=== PATIENT | female | born 1990 | race African-American/Black ===

== ENCOUNTER 2017-02-24 10:18 | Emergency (ER) | payer BC ==
[2017-02-24 11:11] LABS: Bilirubin Small (Negative); Blood, Urine Negative (Negative); Glucose, Urine (Dipstick) 500 mg/dL (Negative); Ketone, Urine > or equal to 80 mg/dL (Negative); Nitrite Negative (Negative); Protein, Urine (Dipstick) 30 mg/dL (Neg-Trace); Urobilinogen 0.2 mg/dL (0.2-1.0)
[2017-02-24 11:20] LABS: ALT (SGPT) 25 U/L (8-55); AST (SGOT) 21 U/L (5-34); Alkaline Phosphatase 65 U/L (40-150); Anion Gap 18 mmol/L (10-20); BUN (Urea Nitrogen) 11 mg/dL (7.0-18.7); Bilirubin, Total 0.6 mg/dL (0.2-1.2); Calc. Creatinine Clearance 0 mL/min (70-130); Calcium 8.9 mg/dL (7.8-10.44); Carbon Dioxide 20 mmol/L (22-29); Chloride 101 mmol/L (98-107); Estimated GFR-MDRD Greater than 90; Globulin 3.9 g/dL (2.4-3.5); Protein, Total 7.5 g/dL (6.0-8.3)
[2017-02-24] MEDS ORDERED: Fentanyl 100 MCG/2 ML VIAL ONE (11:22)
[2017-02-24] MEDS ORDERED: Ondansetron HCl/PF 4 MG/2 ML Vial ONE (11:22)
[2017-02-24 11:23] LABS: Bacteria/HPF 1+ HPF (None Seen); RBC/HPF 0-3 HPF (0-3)
[2017-02-24 11:29] LABS: Band 3 % (5-11); Mean Platelet Volume 6.8 fL (7.4-10.4); Neutrophil 87 % (42-75); Reactive Lymphocytes 2 % (0-10); Red Blood Cell (RBC) Count 4.94 mill/uL (4.20-5.40); White Blood Cell (WBC) Count 7.8 thou/uL (4.8-10.8)
[2017-02-24 11:38] LABS: Lipase Less than 4 U/L (8-78)
[2017-02-24 12:13] LABS: pH (venous) 7.34 (7.35-7.45)
[2017-02-24 12:14] LABS: Base Excess -1.5 mEq/L (-2 - +2)
--- NOTE | 2017-02-24 13:43 | ULT ---
PELVIC ULTRASOUND: TECHNIQUE: Transabdominal, transvaginal, Charles-scale, color-flow, and spectral Doppler. FINDINGS: The uterus measures 6.5 x 3.2 x 3.2 cm. There are two masses in the uterus, measuring 2 x 1.4 x 2.4 cm and 2.9 x 2.8 x 3.4 cm, respectively. These are likely fibroids. The endometrium measures 5 mm in thickness. No endometrial fluid is seen. The right ovary measures 2.8 x 1.3 x 2.8 cm. and the left ovary measures 2.6 x 1.4 x 2.7 cm. Flow is demonstrated to both ova dominique. No adnexal mass or free fluid in the cul-de-sac is identified. IMPRESSION: Uterine fibroids. POS: [facility]
[2017-02-24] MEDS ORDERED: Ketorolac Tromethamine 30 MG/ML VIAL ONE (13:57)
== END 2017-02-24 15:00 | disposition home or self-care (01) ==
LOC: SCSER 10:18
DX: D25.9 Leiomyoma of uterus, unspecified (principal); E10.65 Type 1 diabetes mellitus with hyperglycemia; J45.909 Unspecified asthma, uncomplicated; F41.9 Anxiety disorder, unspecified; F32.9 Major depressive disorder, single episode, unspecified; Z79.4 Long term (current) use of insulin
CPT/HCPCS: 36416; 76856; 80053; 81003; 81015; 81025; 82805; 83690; 85025; 87480; 87491; 87510; 87591; 87660; 96361; 96374; 96375; J1885; J2405; J3010

== ENCOUNTER 2017-04-27 15:34 | Emergency (ER) | payer BC, SELFPAY ==
[2017-04-27 15:59] LABS: Bilirubin Negative (Negative); Blood, Urine Large (Negative); Glucose, Urine (Dipstick) 500 mg/dL (Negative); Leukocyte Negative (Negative); Nitrite Negative (Negative); Protein, Urine (Dipstick) Negative (Neg-Trace); Urobilinogen 0.2 mg/dL (0.2-1.0); pH, Urine 6.5 (5.0-9.0)
[2017-04-27 16:09] LABS: #Basophils 0.1 thou/uL (0.0-0.2); #Eosinphils 0.2 thou/uL (0.0-0.7); #Lymphocytes 1.6 thou/uL (1.20-3.40); #Monocytes 0.3 thou/uL (0.11-0.59); #Neutrophils 1.9 thou/uL (1.40-6.50); %Basophils 1.9 % (0.0-1.0); %Eosinophils 5.4 % (0.0-10.0); %Lymphocytes 39.3 % (21.0-51.0); %Monocytes 7.5 % (0.0-10.0); %Neutrophils 45.9 % (42.0-75.0); Mean Corpuscular HGB CONC 34.7 g/dL (32.0-36.0); Mean Corpuscular Hemoglobin 30.5 pg (27.0-31.0); Mean Corpuscular Volume 87.9 fl (81.0-99.0); Mean Platelet Volume 7.4 fL (7.4-10.4); Platelet Count 291 thou/uL (130-400); Red Blood Cell (RBC) Count 4.61 mill/uL (4.20-5.40); White Blood Cell (WBC) Count 4.1 thou/uL (4.8-10.8)
[2017-04-27 16:12] LABS: Clarity Hazy (Clear); Specific Gravity, Urine 1.008 (1.005-1.030)
[2017-04-27 16:13] LABS: Bacteria/HPF Rare-Few HPF (None Seen); WBC/HPF None Seen HPF (0-3)
[2017-04-27 16:14] LABS: ALT (SGPT) 26 U/L (8-55); AST (SGOT) 18 U/L (5-34); Albumin 3.5 g/dL (3.5-5.0); Alkaline Phosphatase 82 U/L (40-150); Anion Gap 14 mmol/L (10-20); BUN (Urea Nitrogen) 11 mg/dL (7.0-18.7); Bilirubin, Total 0.3 mg/dL (0.2-1.2); Calc. Creatinine Clearance 0 mL/min (70-130); Calcium 8.7 mg/dL (7.8-10.44); Carbon Dioxide 22 mmol/L (22-29); Chloride 101 mmol/L (98-107); Estimated GFR-MDRD Greater than 90; Globulin 3.3 g/dL (2.4-3.5); Glucose 530 mg/dL (70-105); Potassium 4.4 mmol/L (3.5-5.1); Protein, Total 6.8 g/dL (6.0-8.3); Sodium 133 mmol/L (136-145)
[2017-04-27 17:06] LABS: Pregnancy Test - Urine (BHCG) Negative (Negative); Specific Gravity 1.008 (1.002-1.036)
[2017-04-27 17:07] LABS: Pregu Control Background? CLEAR/WHITE (CLR/WHITE); Pregu Control Bar Appear? YES (CONTROL BAR)
[2017-04-29 01:15] LABS: Chlamydia by PCR Not Detected (NotDetected); GC by PCR Not Detected (NotDetected)
== END 2017-04-27 17:12 | disposition home or self-care (01) ==
LOC: SCSER 15:34
DX: N94.6 Dysmenorrhea, unspecified (principal); R10.30 Lower abdominal pain, unspecified; D25.9 Leiomyoma of uterus, unspecified; E10.9 Type 1 diabetes mellitus without complications; F32.9 Major depressive disorder, single episode, unspecified; F41.9 Anxiety disorder, unspecified; J45.909 Unspecified asthma, uncomplicated
CPT/HCPCS: 80053; 81003; 81015; 81025; 85025; 87480; 87491; 87510; 87591; 87660; 99284

== ENCOUNTER 2017-11-10 14:11 | Emergency (ER) | payer SELFPAY ==
[2017-11-10 14:42] LABS: Hemoglobin 12.9 g/dL (12.0-16.0); Mean Corpuscular HGB CONC 33.6 g/dL (32.0-36.0); Mean Corpuscular Hemoglobin 30.4 pg (27.0-31.0); Mean Corpuscular Volume 90.5 fL (78.0-98.0); Mean Platelet Volume 7.2 fL (7.4-10.4); Platelet Count 311 thou/uL (130-400); RBC Distribution Width 11.9 % (11.5-14.5); Red Blood Cell (RBC) Count 4.25 mill/uL (4.20-5.40); White Blood Cell (WBC) Count 3.9 thou/uL (4.8-10.8)
--- NOTE | 2017-11-10 14:58 | RAD ---
PORTABLE CHEST ONE VIEW: 11/10/2017 2:35 p.m. HISTORY: Chest pain. FINDINGS: The heart size is normal. The lungs are well expanded without focal areas of consolidation, pneumoth oraces, or pleural effusions. IMPRESSION: No radiographic evidence of acute cardiopulmonary process. POS: [facility]
[2017-11-10 15:02] LABS: ALT (SGPT) 13 U/L (8-55); AST (SGOT) 18 U/L (5-34); Albumin 3.7 g/dL (3.5-5.0); Alkaline Phosphatase 88 U/L (40-150); Anion Gap 11 mmol/L (10-20); BUN (Urea Nitrogen) 9 mg/dL (7.0-18.7); Bilirubin, Total 0.4 mg/dL (0.2-1.2); CK (CPK) 227 U/L (29-168); Calc. Creatinine Clearance 0 mL/min (70-130); Calcium 8.7 mg/dL (7.8-10.44); Carbon Dioxide 26 mmol/L (22-29); Chloride 103 mmol/L (98-107); Estimated GFR-MDRD Greater than 90; Globulin 3.1 g/dL (2.4-3.5); Glucose 182 mg/dL (70-105); Lipase Less than 4 U/L (8-78); Protein, Total 6.8 g/dL (6.0-8.3); Sodium 136 mmol/L (136-145)
[2017-11-10 15:04] LABS: Band 1 % (5-11); Eosinophils 1 % (0-10); Lymphocytes 51 % (21-51); MDiff Complete? YES; Monocytes 6 % (0-10); Neutrophil 41 % (42-75)
[2017-11-10 15:05] LABS: CKMB 1.6 ng/mL (0-6.6); Troponin I Less than 0.010 ng/mL (< 0.028)
[2017-11-10] MEDS ORDERED: Morphine 4 MG/ML VIAL ONE (15:11)
[2017-11-10] MEDS ORDERED: Ondansetron HCl/PF 4 MG/2 ML Vial ONE (15:11)
--- NOTE | 2017-11-10 16:22 | ULT ---
RIGHT UPPER QUADRANT ULTRASOUND: 11/10/17 HISTORY: Chest pain. FINDINGS: The pancreas is mostly obscured by bowel gas and not well evaluated on this exam. There is a tiny non mobile echogenic focus seen within the gallbladder lumen measuring approximately 0.3 cm which was als o present on a prior study on 12/20/09 and is likely related to tiny gallbladder polyp. No gallbladde r calculus is seen, and there is no gallbladder wall thickening or pericholecystic fluid. The common duct measures 0.4 cm in diameter which is within normal limits. The limited visualized portions of the IVC, liver, and right kidney demonstrate a normal sonographic appearance. The right kidney measures 11.2 cm in length. IMPRESSION: Tiny gallbladder polyp which is stable compared to study in 2010. No gallbladder calculi are visualiz ed. The common duct is normal in caliber. POS: [facility]
== END 2017-11-10 16:30 | disposition home or self-care (01) ==
LOC: ERS 14:11
DX: R07.89 Other chest pain (principal); J45.909 Unspecified asthma, uncomplicated; E10.9 Type 1 diabetes mellitus without complications; F41.9 Anxiety disorder, unspecified; F32.9 Major depressive disorder, single episode, unspecified; Z79.899 Other long term (current) drug therapy
CPT/HCPCS: 71045; 76705; 80053; 82010; 82550; 82553; 83690; 84484; 85025; 93005; 94760; 96361; 96374; 96375; J2270; J2405

== ENCOUNTER 2018-01-22 13:24 | Emergency (ER) | payer SELFPAY ==
[2018-01-22 14:50] LABS: #Eosinphils 0.1 thou/uL (0.0-0.7); #Lymphocytes 1.9 thou/uL (1.20-3.40); #Monocytes 0.3 thou/uL (0.11-0.59); #Neutrophils 1.9 thou/uL (1.40-6.50); %Eosinophils 3.2 % (0.0-10.0); %Lymphocytes 44.7 % (21.0-51.0); %Monocytes 6.7 % (0.0-10.0); %Neutrophils 44.3 % (42.0-75.0); Hemoglobin 13.7 g/dL (12.0-16.0); Mean Corpuscular HGB CONC 34.4 g/dL (32.0-36.0); Mean Corpuscular Volume 90.1 fL (78.0-98.0); Mean Platelet Volume 7.4 fL (7.4-10.4); Platelet Count 327 thou/uL (130-400); RBC Distribution Width 12.3 % (11.5-14.5); Red Blood Cell (RBC) Count 4.44 mill/uL (4.20-5.40); White Blood Cell (WBC) Count 4.3 thou/uL (4.8-10.8)
[2018-01-22 15:10] LABS: ALT (SGPT) 15 U/L (8-55); AST (SGOT) 16 U/L (5-34); Alkaline Phosphatase 103 U/L (40-150); Anion Gap 17 mmol/L (10-20); BUN (Urea Nitrogen) 6 mg/dL (7.0-18.7); Bilirubin, Total 0.4 mg/dL (0.2-1.2); Calc. Creatinine Clearance 0 mL/min (70-130); Calcium 9.4 mg/dL (7.8-10.44); Carbon Dioxide 21 mmol/L (22-29); Chloride 101 mmol/L (98-107); Estimated GFR-MDRD Greater than 90; Globulin 3.6 g/dL (2.4-3.5); Glucose 367 mg/dL (70-105); Potassium 4.2 mmol/L (3.5-5.1); Protein, Total 7.6 g/dL (6.0-8.3); Sodium 135 mmol/L (136-145)
[2018-01-22 15:14] LABS: Bilirubin Negative (Negative); Blood, Urine Large (Negative); Clarity CLEAR (Clear); Glucose, Urine (Dipstick) >=1000 mg/dL (Negative); Leukocyte Negative (Negative); Nitrite Negative (Negative); Protein, Urine (Dipstick) Negative (Neg-Trace); Specific Gravity, Urine 1.038 (1.002-1.036); Urobilinogen 0.2 mg/dL (0.2-1.0)
[2018-01-22 15:16] LABS: Bacteria/HPF Rare-Few HPF (None Seen); Hyaline Casts/LPF 0-3 HYALINE CAST LPF (0-3 Hyaline); RBC/HPF 0-3 HPF (0-3); Squamous Epithelial 0-3 HPF (0-3)
[2018-01-22] MEDS ORDERED: HumaLOG 300 UNITS/3 ML VIAL ONE ×2 (15:38→16:05)
[2018-01-22] MEDS ORDERED: Acetaminophen 500 MG TAB ONE (15:38)
[2018-01-22] MEDS ORDERED: Insulin Regular 300 UNITS/3 ML VIAL ONE (16:27)
== END 2018-01-22 17:32 | disposition home or self-care (01) ==
LOC: ERS 13:24
DX: E10.65 Type 1 diabetes mellitus with hyperglycemia (principal); J45.909 Unspecified asthma, uncomplicated; F41.9 Anxiety disorder, unspecified; F32.9 Major depressive disorder, single episode, unspecified; Z79.4 Long term (current) use of insulin
CPT/HCPCS: 36415; 36416; 80053; 81003; 81015; 82010; 85025; 99284; J1815

== ENCOUNTER 2018-02-03 16:37 | Emergency (ER) | payer SELFPAY | END 2018-02-03 18:24 | disposition home or self-care (01) | LOC: ERS 16:37 | DX: F41.9 Anxiety disorder, unspecified (principal); J45.909 Unspecified asthma, uncomplicated; E10.9 Type 1 diabetes mellitus without complications; F32.9 Major depressive disorder, single episode, unspecified | CPT/HCPCS: 93005 ==

== ENCOUNTER 2018-03-16 15:43 | Emergency (ER) | payer OTHER, SELFPAY ==
[2018-03-16 16:28] LABS: #Eosinphils 0.1 thou/uL (0.0-0.7); #Lymphocytes 1.9 thou/uL (1.20-3.40); #Monocytes 0.4 thou/uL (0.11-0.59); #Neutrophils 2.6 thou/uL (1.40-6.50); %Basophils 0.3 % (0.0-1.0); %Eosinophils 2.5 % (0.0-10.0); %Lymphocytes 37.8 % (21.0-51.0); %Monocytes 7.7 % (0.0-10.0); %Neutrophils 51.7 % (42.0-75.0); Mean Corpuscular HGB CONC 33.9 g/dL (32.0-36.0); Mean Corpuscular Hemoglobin 30.3 pg (27.0-31.0); Mean Corpuscular Volume 89.4 fL (78.0-98.0); Mean Platelet Volume 7.5 fL (7.4-10.4); Platelet Count 309 thou/uL (130-400); RBC Distribution Width 12.2 % (11.5-14.5); Red Blood Cell (RBC) Count 4.62 mill/uL (4.20-5.40); White Blood Cell (WBC) Count 4.9 thou/uL (4.8-10.8)
[2018-03-16 16:47] LABS: ALT (SGPT) 17 U/L (8-55); AST (SGOT) 15 U/L (5-34); Albumin 3.6 g/dL (3.5-5.0); Alkaline Phosphatase 124 U/L (40-150); Anion Gap 13 mmol/L (10-20); BUN (Urea Nitrogen) 13 mg/dL (7.0-18.7); Bilirubin, Total 0.4 mg/dL (0.2-1.2); Calc. Creatinine Clearance 0 mL/min (70-130); Calcium 8.9 mg/dL (7.8-10.44); Carbon Dioxide 24 mmol/L (22-29); Chloride 101 mmol/L (98-107); Estimated GFR-MDRD 77; Globulin 3.4 g/dL (2.4-3.5); Glucose 481 mg/dL (70-105); Lipase 6 U/L (8-78); Potassium 4.5 mmol/L (3.5-5.1); Sodium 133 mmol/L (136-145)
[2018-03-16 18:01] LABS: Bilirubin Negative (Negative); Blood, Urine Negative (Negative); Clarity CLEAR (Clear); Glucose, Urine (Dipstick) >=1000 mg/dL (Negative); Leukocyte Negative (Negative); Nitrite Negative (Negative); Protein, Urine (Dipstick) Negative (Neg-Trace); Specific Gravity, Urine 1.033 (1.002-1.036); Urobilinogen 0.2 mg/dL (0.2-1.0)
[2018-03-16 18:05] LABS: Pregnancy Test - Urine (BHCG) Negative (Negative); Pregu Control Background? CLEAR/WHITE (CLR/WHITE); Pregu Control Bar Appear? YES (CONTROL BAR); Specific Gravity 1.033 (1.002-1.036)
--- NOTE | 2018-03-16 19:14 | RAD ---
ABDOMEN ONE VIEW: 03/16/18 HISTORY: Abdominal pain. FINDINGS: Gas and stool throughout the colon and rectum. Small bowel gas pattern is nonspecific. The rounded op acity over the pelvis has the appearance of a full urinary bladder. IMPRESSION: No significant abnormalities are demonstrated. POS: [facility]
== END 2018-03-16 19:36 | disposition home or self-care (01) ==
LOC: ERS 15:43
DX: K59.00 Constipation, unspecified (principal); J45.909 Unspecified asthma, uncomplicated; E10.9 Type 1 diabetes mellitus without complications; E78.5 Hyperlipidemia, unspecified; F41.9 Anxiety disorder, unspecified; F32.9 Major depressive disorder, single episode, unspecified
CPT/HCPCS: 36415; 74018; 80053; 81003; 81025; 83690; 85025

== ENCOUNTER 2018-07-11 12:45 | Emergency (ER) | payer OTHER ==
[2018-07-11 13:11] LABS: #Basophils 0.1 thou/uL (0.0-0.2); #Eosinphils 0.1 thou/uL (0.0-0.7); #Lymphocytes 2.3 thou/uL (1.20-3.40); #Monocytes 0.4 thou/uL (0.11-0.59); %Basophils 1.6 % (0.0-1.0); %Eosinophils 2.7 % (0.0-10.0); %Lymphocytes 47.3 % (21.0-51.0); %Monocytes 7.5 % (0.0-10.0); Mean Corpuscular HGB CONC 33.4 g/dL (32.0-36.0); Mean Corpuscular Hemoglobin 30.3 pg (27.0-31.0); Mean Corpuscular Volume 90.7 fL (78.0-98.0); Mean Platelet Volume 7.3 fL (7.4-10.4); Platelet Count 311 thou/uL (130-400); RBC Distribution Width 11.9 % (11.5-14.5); Red Blood Cell (RBC) Count 4.62 mill/uL (4.20-5.40)
[2018-07-11 13:32] LABS: ALT (SGPT) 20 U/L (8-55); AST (SGOT) 18 U/L (5-34); Albumin 4.3 g/dL (3.5-5.0); Alkaline Phosphatase 101 U/L (40-150); Anion Gap 12 mmol/L (10-20); BUN (Urea Nitrogen) 10 mg/dL (7.0-18.7); Bilirubin, Total 0.4 mg/dL (0.2-1.2); Calc. Creatinine Clearance 0 mL/min (70-130); Calcium 9.8 mg/dL (7.8-10.44); Carbon Dioxide 27 mmol/L (22-29); Chloride 102 mmol/L (98-107); Estimated GFR-MDRD Greater than 90; Globulin 3.3 g/dL (2.4-3.5); Glucose 165 mg/dL (70-105); Potassium 3.9 mmol/L (3.5-5.1); Protein, Total 7.6 g/dL (6.0-8.3); Sodium 137 mmol/L (136-145)
[2018-07-11 13:35] LABS: Bilirubin Negative (Negative); Blood, Urine Negative (Negative); Clarity CLEAR (Clear); Glucose, Urine (Dipstick) >=1000 mg/dL (Negative); Leukocyte Negative (Negative); Nitrite Negative (Negative); Protein, Urine (Dipstick) Trace mg/dL (Neg-Trace); Specific Gravity, Urine 1.044 (1.002-1.036); Urobilinogen 0.2 mg/dL (0.2-1.0)
[2018-07-11 13:39] LABS: Pregnancy Test - Urine (BHCG) Negative (Negative); Pregu Control Background? CLEAR/WHITE (CLR/WHITE); Pregu Control Bar Appear? YES (CONTROL BAR); Specific Gravity 1.044 (1.002-1.036)
[2018-07-11] MEDS ORDERED: Meclizine HCl 25 MG TAB ONE (15:23)
== END 2018-07-11 15:29 | disposition home or self-care (01) ==
LOC: ERS 12:45
DX: R42 Dizziness and giddiness (principal); R53.81 Other malaise; J45.909 Unspecified asthma, uncomplicated; E10.9 Type 1 diabetes mellitus without complications; E78.5 Hyperlipidemia, unspecified; F41.9 Anxiety disorder, unspecified; F32.9 Major depressive disorder, single episode, unspecified; Z79.899 Other long term (current) drug therapy
CPT/HCPCS: 36415; 36416; 80053; 81003; 81025; 85025; 93005; J8499

== ENCOUNTER 2018-07-31 17:32 | Emergency (ER) | payer OTHER ==
[2018-07-31] MEDS ORDERED: Ketorolac Tromethamine 30 MG/ML VIAL ONE (18:35)
== END 2018-07-31 18:56 | disposition home or self-care (01) ==
LOC: ERS 17:32
DX: J32.9 Chronic sinusitis, unspecified (principal); E78.5 Hyperlipidemia, unspecified; J45.909 Unspecified asthma, uncomplicated; E10.9 Type 1 diabetes mellitus without complications; F41.9 Anxiety disorder, unspecified; F32.9 Major depressive disorder, single episode, unspecified; Z79.899 Other long term (current) drug therapy
CPT/HCPCS: 36416; 96372; J1885

== ENCOUNTER 2018-08-01 09:07 | Inpatient (IN) | payer OTHER ==
[2018-08-01] MEDS ORDERED: Ondansetron PF 4 MG/2 ML Vial ONE (09:44)
[2018-08-01] MEDS ORDERED: Promethazine HCl 25 MG/ML VIAL ONE (09:45)
[2018-08-01 09:55] LABS: #Lymphocytes 1.7 thou/uL (1.20-3.40); #Monocytes 0.4 thou/uL (0.11-0.59); #Neutrophils 2.2 thou/uL (1.40-6.50); %Basophils 0.3 % (0.0-1.0); %Eosinophils 0.7 % (0.0-10.0); %Monocytes 9.1 % (0.0-10.0); Hemoglobin 14.5 g/dL (12.0-16.0); Mean Corpuscular Hemoglobin 30.1 pg (27.0-31.0); Mean Corpuscular Volume 91.3 fL (78.0-98.0); Mean Platelet Volume 7.5 fL (7.4-10.4); Platelet Count 295 thou/uL (130-400); RBC Distribution Width 12.1 % (11.5-14.5); White Blood Cell (WBC) Count 4.4 thou/uL (4.8-10.8)
--- NOTE | 2018-08-01 10:08 | RAD ---
EXAM: Single view of the chest HISTORY: Chest and abdominal pain COMPARISON: 11/10/2017 FINDINGS: Single view of the chest shows a normal sized cardiomediastinal silhouette. There is no kim dence of consolidation, mass, or pleural effusion. The bones are unremarkable. IMPRESSION: No evidence of acute cardiopulmonary disease
[2018-08-01 10:19] LABS: Magnesium 2.1 mg/dL (1.6-2.6); Phosphorus 4.4 mg/dL (2.3-4.7)
[2018-08-01 10:20] LABS: ALT (SGPT) 49 U/L (8-55); AST (SGOT) 28 U/L (5-34); Albumin 4.6 g/dL (3.5-5.0); Alkaline Phosphatase 133 U/L (40-150); Anion Gap 28 mmol/L (10-20); BUN (Urea Nitrogen) 17 mg/dL (7.0-18.7); Bilirubin, Total 0.5 mg/dL (0.2-1.2); Calc. Creatinine Clearance 0 mL/min (70-130); Calcium 10.4 mg/dL (7.8-10.44); Carbon Dioxide 10 mmol/L (22-29); Chloride 96 mmol/L (98-107); Estimated GFR-MDRD 54; Globulin 4.2 g/dL (2.4-3.5); Glucose 467 mg/dL (70-105); Potassium 5.5 mmol/L (3.5-5.1); Protein, Total 8.8 g/dL (6.0-8.3); Sodium 128 mmol/L (136-145)
[2018-08-01 10:44] LABS: Bilirubin Negative (Negative); Blood, Urine Trace (Negative); Clarity CLEAR (Clear); Glucose, Urine (Dipstick) >=1000 mg/dL (Negative); Leukocyte Negative (Negative); Nitrite Negative (Negative); Protein, Urine (Dipstick) 30 mg/dL (Neg-Trace); Specific Gravity, Urine 1.031 (1.002-1.036); Urobilinogen 0.2 mg/dL (0.2-1.0)
[2018-08-01 10:47] LABS: Bacteria/HPF None Seen HPF (None Seen); Hyaline Casts/LPF 0-3 HYALINE CAST LPF (0-3 Hyaline); RBC/HPF 0-3 HPF (0-3); Squamous Epithelial 0-3 HPF (0-3); WBC/HPF 0-3 HPF (0-3)
[2018-08-01 11:49] LABS: Base Excess-Venous -16.6 mmol/L (-2.0 to 3.0); Bicarbonate (HCO3v) 11.9 mmol/L (22.0-28.0); Calcium, Ionized 1.22 mmol/L (See Comments:); Chloride 101 mmol/L (98-107); Hemoglobin - Calc 15.9 g/dL (12.0-16.0); O2 Tension (PvO2) 115.1 mmHg (35.0-45.0); Potassium 6.5 mmol/L (3.5-5.1); Sodium 127 mmol/L (138-145); pH (Venous) 7.126 (7.320-7.430); vO2 Saturation-calc 96.8 % (60.0-85.0)
[2018-08-01] MEDS ORDERED: HUMULIN R 100 UNITS in Sodium Chloride 0.9% 100 ML IVPB SCH ×2 (12:30→13:45)
[2018-08-01] MEDS ORDERED: Sucralfate 1 GM/10 ML UDCUP ONE (13:00)
[2018-08-01] MEDS ORDERED: Dextrose 5 %-0.45 % NaCl 1,000 ML IV PRN (13:45)
[2018-08-01] MEDS ORDERED: Ondansetron ODT 4 MG TAB PO PRN (13:45)
[2018-08-01] MEDS ORDERED: NS 0.9% w/ 20 MEQ KCL 1,000 ML IV PRN (13:45)
[2018-08-01] MEDS ORDERED: Sodium Chloride 0.9% 1,000 ML IV PRN ×4 (13:45)
[2018-08-01] MEDS ORDERED: CCU Electrolyte Replacement 1 EACH IVPB ONE (13:45)
[2018-08-01] MEDS ORDERED: Ondansetron PF 4 MG/2 ML Vial IVP PRN (13:45)
[2018-08-01] MEDS ORDERED: Potassium Phosphate 15 MMOL in Sodium Chloride 0.9% 250 ML 250 ML IV PRN (13:51)
[2018-08-01] MEDS ORDERED: CCU ELECTROLYTE REPLACEMENT PROTOCOL FS PRN (13:51)
[2018-08-01] MEDS ORDERED: Potassium Chloride 20 MEQ TAB PO PRN (13:51)
[2018-08-01] MEDS ORDERED: Potassium Phosphate 12 MMOL in Sodium Chloride 0.9% 250 ML 250 ML IV PRN (13:51)
[2018-08-01] MEDS ORDERED: Potassium Chloride 40 MEQ in Premix Bag 1 BAG IVPB PRN (13:51)
[2018-08-01] MEDS ORDERED: Magnesium Oxide 400 MG TAB PO PRN ×2 (13:51)
[2018-08-01] MEDS ORDERED: Potassium Chloride 40 MEQ in Sodium Chloride 0.9% 250 ML 250 ML IVPB PRN (13:51)
[2018-08-01] MEDS ORDERED: Potassium Phosphate 9 MMOL in Sodium Chloride 0.9% 100 ML IVPB PRN (13:51)
[2018-08-01] MEDS ORDERED: PHOS-NAK 1 PKT PACK PO PRN ×2 (13:51)
[2018-08-01] MEDS ORDERED: Magnesium 2 GM/50 ML 2 GM in Premix Bag 1 BAG IVPB PRN (13:51)
[2018-08-01] MEDS ORDERED: Albuterol Sulfate 1.25 MG/3 ML NEB NEB PRN (13:55)
[2018-08-01 14:05] LABS: Troponin I Less than 0.010 ng/mL (< 0.028)
[2018-08-01 14:38] LABS: Anion Gap 24 mmol/L (10-20); BUN (Urea Nitrogen) 16 mg/dL (7.0-18.7); Calc. Creatinine Clearance 90 mL/min (70-130); Calcium 9.4 mg/dL (7.8-10.44); Chloride 104 mmol/L (98-107); Estimated GFR-MDRD 63; Glucose 345 mg/dL (70-105); Potassium 4.9 mmol/L (3.5-5.1); Sodium 132 mmol/L (136-145)
[2018-08-01 14:42] LABS: Carbon Dioxide 9 mmol/L (22-29)
[2018-08-01] MEDS: NS 0.9% w/ 20 MEQ KCL 1,000 ML IV PRN ×2 (16:16→18:27)
--- NOTE | 2018-08-01 16:23 | HP ---
CHIEF COMPLAINT: Generalized weakness. HISTORY OF PRESENT ILLNESS: This patient is a 27-year-old female with a history of diabetes and prior history of diabetic ketoacidosis, who presents to the Emergency Department, complaining of feeling generally poor, what we understanding how she felt previously when she had DKA. The patient reports she was recently diagnosed with a sinus infection. In fact, the patient was here yesterday complaining of headache with pressure behind her eyes. She took some Benadryl, but was not having significant relief. She was diagnosed with sinusitis and discharged to home after receiving 30 mg of ketorolac IM. Last night, the patient reported she started having more polyuria and this morning, she felt herself declining fairly rapidly just becoming profoundly weak, very dehydrated, felt like she had some generalized abdominal discomfort and some radiation to the back. She denies specifically any fevers or chills. No significant peripheral edema. Still has some head pressure and mild sore throat. REVIEW OF SYSTEMS: All other systems were reviewed, all pertinent positives and negatives noted in history of present illness. PAST MEDICAL HISTORY: Notable for the diabetes mellitus type 1, history of asthma, and history of prior DKA. Right upper extremity DVT, presumably due to control pills. The patient reports that was about a year ago. She has been on anticoagulation since. She has not followed up in order to determine whether this should be discontinued or not. PAST SURGICAL HISTORY: History of left patellar reconstruction with lateral release. FAMILY HISTORY: Multiple family members with hypertension, coronary artery disease, and stroke. SOCIAL HISTORY: The patient is engaged. She is nonsmoker, nondrinker, and nondrug user. She has a full code and reports her parents would be her surrogate decision makers for now as her fiancee is working in [place]. ALLERGIES: CODEINE, PSEUDOEPHEDRINE, HYDROCODONE, AND TAPE. CURRENT MEDICATIONS: 1. Humalog sliding scale with an insulin pump. 2. Eliquis 5 mg daily reportedly with the patient reports she has been out of this. 3. Meclizine 25 mg q.8 hours p.r.n. PHYSICAL EXAMINATION: VITAL SIGNS: BP 129/67, pulse 91, respirations 16, temperature 98, and O2 saturation 100% on room air. GENERAL APPEARANCE: Age-appropriate female, in no distress. She is awake, alert, pleasant, and cooperative. She appears slightly ill appearing, slightly lethargic. HEENT: PERRL. She has no OP lesions. Very minimal white plaque on the upper posterior pharynx without significant erythema or edema. NECK: Supple and symmetric without lymphadenopathy, JVD, or bruits. HEART: Regular rate and rhythm without murmurs, gallops, or rubs. LUNGS: Clear to auscultation bilaterally. Good chest wall expansion on air exchange. ABDOMEN: Soft, nontender, and nondistended. Positive bowel sounds. No masses. No organomegaly. EXTREMITIES: No cyanosis, clubbing, or edema. LABORATORY DATA: White count 4.4, hemoglobin 14.5, and platelets 295. Sodium 128, potassium 5.5, chloride 96, CO2 of 10, anion gap 28, BUN 17, creatinine 1.44, glucose 467, calcium 10.4, and serum osmolality 311. LFTs normal. Albumin 4.6. Troponin less than 0.01. Urinalysis shows glucose and ketones. Beta-hydroxybutyrate 6.26. Strep screen pending. Chest x-ray is negative. IMPRESSION AND PLAN: 1. Diabetic ketoacidosis. The patient will be admitted to the hospital in the critical care area. She has been started on insulin drip, which we will continue. We will start her on the hospital's diabetic ketoacidosis protocol and continue antibiotic coverage for possible underlying infection. 2. Possible bacterial sinus infection. Can start the patient on Rocephin. 3. History of deep venous thrombosis. Details are not fully understood. It sounds like she had a right upper extremity deep venous thrombosis, which was attributed to her being on hormonal control pills. She is supposed to be on Eliquis as she has not been asked to stop it yet and she is currently out of that. I will go ahead and restart that for now and see if we can get more details, but not knowing all of the information, do not want to stop that at this point. 4. Mild acute renal insufficiency secondary to dehydration. We will continue to monitor if she is rehydrated. 5. Hyponatremia. This is pseudohyponatremia secondary to hyperglycemia. 6. Hyperkalemia. Certainly part of the diabetic ketoacidosis should improve as the acidosis resolves. So, I will continue to monitor. 7. History of asthma. Make sure, the patient has albuterol nebulizer treatments available to her as needed. Job ID: [id number]
[2018-08-01] MEDS: Acetaminophen 325 MG TAB PO PRN ×2 (17:15→21:14)
[2018-08-01 17:17] LABS: Troponin I Less than 0.010 ng/mL (< 0.028)
[2018-08-01 17:25] VITALS: BMI 23.5
[2018-08-01 18:45] LABS: Anion Gap 19 mmol/L (10-20); BUN (Urea Nitrogen) 12 mg/dL (7.0-18.7); Calc. Creatinine Clearance 112 mL/min (70-130); Calcium 8.5 mg/dL (7.8-10.44); Chloride 112 mmol/L (98-107); Estimated GFR-MDRD 81; Glucose 97 mg/dL (70-105); Potassium 6.3 mmol/L (3.5-5.1); Sodium 133 mmol/L (136-145)
[2018-08-01 18:57] LABS: Carbon Dioxide 8 mmol/L (22-29)
[2018-08-01] MEDS: cefTRIAXone\\ROCEPHIN 2 GM in Sodium Chloride 0.9% 100 ML IVPB SCH (19:43)
[2018-08-01] MEDS: Famotidine 20 MG TAB PO SCH (19:43)
[2018-08-01 22:15] LABS: Anion Gap 14 mmol/L (10-20); BUN (Urea Nitrogen) 9 mg/dL (7.0-18.7); Calc. Creatinine Clearance 109 mL/min (70-130); Calcium 7.7 mg/dL (7.8-10.44); Carbon Dioxide 13 mmol/L (22-29); Chloride 108 mmol/L (98-107); Estimated GFR-MDRD 78; Glucose 338 mg/dL (70-105); Potassium 4.5 mmol/L (3.5-5.1); Sodium 130 mmol/L (136-145)
[2018-08-01] MEDS: D5 1/2 NS w/20 mEq KCL 1,000 ML IV PRN (22:53)
[2018-08-02] MEDS: D5 1/2 NS w/20 mEq KCL 1,000 ML IV PRN (02:52)
[2018-08-02 05:15] LABS: Anion Gap 8 mmol/L (10-20); BUN (Urea Nitrogen) 6 mg/dL (7.0-18.7); Calc. Creatinine Clearance 135 mL/min (70-130); Calcium 7.8 mg/dL (7.8-10.44); Carbon Dioxide 18 mmol/L (22-29); Chloride 111 mmol/L (98-107); Estimated GFR-MDRD Greater than 90; Glucose 142 mg/dL (70-105); Sodium 133 mmol/L (136-145)
--- NOTE | 2018-08-02 08:38 | PDOC.PULCN ---
Pulmonology Consult: HPI - Date of Consult Date: 08/02/18 Time: 08:00 Pulmonology Consult: Meds - Medications Medications: Current Medications Acetaminophen (Tylenol) 650 mg PO Q4H PRN PRN Reason: Headache/Fever/Mild Pain (1-3) Last Admin: 08/01/18 21:14 Dose: 650 mg Albuterol Sulfate (Albuterol Sulfate) 1.25 mg NEB [id number] PRN PRN Reason: Wheezing Enoxaparin Sodium (Lovenox) 40 mg SC 0900 RASHAUN Famotidine (Pepcid) 20 mg PO BID RASHAUN Last Admin: 08/01/18 19:43 Dose: 20 mg Insulin Human Regular 100 (units/ Sodium Chloride) 101 mls @ 0 mls/hr IVPB INF RASHAUN; Protocol Dextrose/Sodium Chloride (D5 1/2 Ns) 1,000 mls @ 250 mls/hr IV .Q4H PRN; Protocol PRN Reason: Step 4 of DKA Protocol Last Admin: 08/01/18 18:55 Dose: 1,000 mls Potassium Chloride/Dextrose/Sod Cl (D5 1/2 Ns W/20 Meq Kcl) 1,000 mls @ 250 mls /hr IV .Q4H PRN; Protocol PRN Reason: Step 4 of DKA Protocol Last Admin: 08/02/18 02:52 Dose: 1,000 mls Sodium Chloride (Normal Saline 0.9%) 1,000 mls @ 500 mls/hr IV .Q2H PRN; Protocol PRN Reason: Step 1 of DKA Protocol Sodium Chloride (Normal Saline 0.9%) 1,000 mls @ 1,000 mls/hr IV .Q1H PRN; Protocol PRN Reason: Step 1 of DKA Protocol Sodium Chloride (Normal Saline 0.9%) 1,000 mls @ 250 mls/hr IV .Q4H PRN; Protocol PRN Reason: SEE STEP 3 OF DKA PROTOCOL Sodium Chloride (Normal Saline 0.9%) 1,000 mls @ 500 mls/hr IV .Q2H PRN; Protocol PRN Reason: Step 2 of DKA Protocol Potassium Chloride/Sodium Chloride (Ns 0.9% W/ 20 Meq Kcl) 1,000 mls @ 500 mls/ hr IV .Q2H PRN; Protocol PRN Reason: Step 2 of DKA Protocol Last Admin: 08/01/18 18:27 Dose: 1,000 mls Potassium Chloride/Sodium Chloride (Ns 0.9% W/ 20 Meq Kcl) 1,000 mls @ 250 mls/ hr IV .Q4H PRN; Protocol PRN Reason: SEE STEP 3 OF DKA PROTOCOL Ceftriaxone Sodium 2 gm/ (Sodium Chloride) 100 mls @ 200 mls/hr IVPB 1400 RASHAUN Last Admin: 08/01/18 19:43 Dose: 100 mls Potassium Chloride 40 meq/ (Sodium Chloride) 270 mls @ 135 mls/hr IVPB ASDIR PRN PRN Reason: FOR SERUM K+ 2.5 - 3.5 Potassium Chloride 40 meq/ (Device) 100 mls @ 50 mls/hr IVPB ASDIR PRN PRN Reason: FOR SERUM K+ 2.5 - 3.5 Magnesium Sulfate 1 gm/ Sodium (Chloride) 102 mls @ 102 mls/hr IV PRN PRN PRN Reason: MAG LEVEL 1.4 - 2.0 Magnesium Sulfate 2 gm/ Device 50 mls @ 50 mls/hr IVPB ASDIR PRN PRN Reason: MAGNESIUM < 1.4 Potassium Phosphate 9 mmol/ (Sodium Chloride) 103 mls @ 25.75 mls/hr IVPB ASDIR PRN PRN Reason: Phosphate 1.0-1.8 Potassium Phosphate 12 mmol/ (Sodium Chloride) 254 mls @ 63.5 mls/hr IV ASDIR PRN PRN Reason: Serum phosphate 0.5-0.9 Potassium Phosphate 15 mmol/ (Sodium Chloride) 255 mls @ 63.75 mls/hr IV ASDIR PRN PRN Reason: Serum Phos < 0.5 Insulin Glargine 20 units/ (Miscellaneous Medication) 0.2 mls @ 0 mls/[facility] Oxide (Magnesium Oxide) 400 mg PO BIDPRN PRN PRN Reason: FOR SERUM MAG 1.4 - 2.0 Magnesium Oxide (Magnesium Oxide) 800 mg PO PRN PRN PRN Reason: FOR SERUM MAG < 1.4 Miscellaneous Medication (Phos-Nak) 1 pkt PO TIDPRN PRN PRN Reason: FOR PHOS LEVEL 1.0 - 1.8 Miscellaneous Medication (Phos-Nak) 2 pkt PO TIDPRN PRN PRN Reason: FOR PHOS LEVEL 0.5 - 1.0 Ccu Electrolyte (Replacement Protocol) 0 each FS PRN PRN PRN Reason: FOR ELECTROLYTE REPLACEMENT Ondansetron HCl (Zofran Odt) 4 mg PO Q6H PRN PRN Reason: Nausea/Vomiting Ondansetron HCl (Zofran) 4 mg IVP Q6H PRN PRN Reason: Nausea/Vomiting Potassium Chloride (K-Dur) 40 meq PO ASDIR PRN PRN Reason: FOR SERUM K+ 2.5 - 3.5 Potassium Chloride (Klor-Con) 40 meq PER TUBE ASDIR PRN PRN Reason: FOR SERUM K+ 2.5-3.5 - Allergies Allergies/Adverse Reactions: Allergies Allergy/AdvReac Type Severity Reaction Status Date / Time codeine [Codeine] Allergy Mild Verified 08/04/12 12:10 pseudoephedrine Allergy Mild Verified 08/04/12 12:10 hydrocodone Allergy Verified 04/24/13 04:05 TAPE Allergy Mild Uncoded 08/04/12 03:20 Pulmonology Consult: Results - Labs Result Diagrams: 08/01/18 09:46 08/02/18 04:47 - ABG Interpretation ABG Results: POC Bicarbonate Calc 11.9 mmol/L (22.0-28.0) L* 08/01/18 11:46 Pulmonology Consult: A/P - Time Time: 50% of the time was spent in coordination of care (as documented) at patient's floor/unit and/or counseling patient. Time with Patient: greater than 50 minutes - Plan Plan: HPI: This is a 27 yo F admitted for DKA following a sinus infection. She states she went into clinic and was diagnosed with sinus infection and told to use Flonase 2 days ago. Then, yesterday she felt she was feeling much worse with nausea, polyuria, and weakness so she went into the ED and was found to be in DKA. She has an insulin pump which is functioning, she does not know her basal rate. She has been on pump for 3 years. She is a 1:1 carb to insulin conversion for short acting per her report. This morning she ate a breakfast of muffin, orange juice , and moe, although on consistent carb diet, without any N/V. Patient was on eliquis following R lower extremity DVT about 1 year ago which was attributed to OCPs. She ran out of the eliquis 3 days ago. PMH: DM1, asthma, RLE DVT 1 year ago PSH: L knee Med: insulin pump, albuterol, Advair, eliquis All: hydrocodone, codeine, latex Soc: denies smoking, alcohol, drugs Fm Hx: stroke, CV disease REVIEW OF SYSTEMS: Gen: no fever, chills, or sweats Neuro: no numbness/tingling, no weakness, sinus headache improved since yesterday Eyes: no visual changes ENT: no hearing changes, no sore throat, no runny nose Resp: no cough, no SOB, no wheeze Card: denies chest pain, no palpitations GI: no N/V/D, no abdominal pain : no dysuria, no hematuria MSK: no myalgias, no joint pain/stiffness Skin: no rash, no erythema PHYSICAL EXAMINATION: General: NAD, alert and oriented x3 HEENT: PERRLA Heart/Cardiovascular System: RRR, Cap refill < 3 seconds, no rub, no murmur Lungs/Respiratory System: clear to auscultation bilaterally. No increased work of breathing. Room air. Abdomen/Gastro-Intestinal System: no abdominal tenderness, normal bowel sounds, no masses, no organomegaly Extremities: Warm extremities. No cyanosis or edema. Neuro: No gross deficits appreciated Skin: No lesions, rashes, or ulcers Musculoskeletal: Full ROM ASSESSMENT and Plan This is a 27 yo F being admitted for DKA. # DKA likely 2/2 infection - Insulin drip overnight, stopped at 0600 - Mother will bring equipment for pump, tolerating PO intake this AM - Will give 20 U of lantus this AM for coverage - Gap closed to 8 this AM, will re-check bmp at 1000 - Stop fluids for now, Na 133, K4.0, will monitor # Sinus infection - on rocehpin # Asthma - albuterol prn, home Advair # hx of R DVT attributed to OCPs - home eliquis - ran out 3 days ago, has been on it >1 year Diet: diabetic Fluids: TKO Code: full Dispo: likely stable for transfer to floor this PM pending bmp Addendum by Dr. Rivera Pt seen and examined. All details of H&P reviewed. Pt is now out of DKA. Long acting insulin being started until she can get equipment for her insuling pump.
[2018-08-02] MEDS: Insulin Glargine 20 UNITS in Pre-Filled Syringe 1 EACH SC SCH (09:50)
[2018-08-02] MEDS: Enoxaparin Sodium 40 MG/0.4 ML SYRINGE SC SCH (09:51)
[2018-08-02] MEDS: Famotidine 20 MG TAB PO SCH ×2 (09:51→20:50)
[2018-08-02 10:26] LABS: Anion Gap 17 mmol/L (10-20); BUN (Urea Nitrogen) 5 mg/dL (7.0-18.7); Calc. Creatinine Clearance 116 mL/min (70-130); Calcium 8.2 mg/dL (7.8-10.44); Carbon Dioxide 12 mmol/L (22-29); Chloride 106 mmol/L (98-107); Estimated GFR-MDRD 84; Glucose 352 mg/dL (70-105); Potassium 4.8 mmol/L (3.5-5.1); Sodium 130 mmol/L (136-145)
--- NOTE | 2018-08-02 10:55 | PDOC.EVN ---
Event Note - Event Note Event Note: gap at 17 after having muffin and OJ for breakfast Will start NS at 75 ml/hr cover with sliding scale, already received 20U lantus advised to adhere to diabetic diet for lunch
[2018-08-02] MEDS ORDERED: Sodium Chloride 0.9% 1,000 ML IV SCH (11:00)
[2018-08-02] MEDS ORDERED: Dextrose 50% Abboject 50 ML SYRINGE SLOW IVP PRN (11:01)
[2018-08-02] MEDS ORDERED: Dextrose 5% in Water 1,000 ML IV PRN (11:01)
[2018-08-02] MEDS ORDERED: HumaLOG 300 UNITS/3 ML VIAL SC PRN (11:01)
[2018-08-02] MEDS: cefTRIAXone\\ROCEPHIN 2 GM in Sodium Chloride 0.9% 100 ML IVPB SCH (14:56)
[2018-08-02 15:20] LABS: Anion Gap 15 mmol/L (10-20); BUN (Urea Nitrogen) 7 mg/dL (7.0-18.7); Calc. Creatinine Clearance 108 mL/min (70-130); Calcium 8.5 mg/dL (7.8-10.44); Carbon Dioxide 15 mmol/L (22-29); Chloride 105 mmol/L (98-107); Estimated GFR-MDRD 77; Glucose 414 mg/dL (70-105); Potassium 4.7 mmol/L (3.5-5.1); Sodium 130 mmol/L (136-145)
--- NOTE | 2018-08-02 15:42 | PDOC.PN ---
- Subjective Encounter Start Date: 08/02/18 Encounter Start Time: 15:41 Subjective: Admitted with lightheadedness superimposed of sinusitis symptoms -: Found to have DKA. feeling better - Objective Resuscitation Status - Order Detail: 08/01/18 13:45 Resuscitation Status Routine Resuscitation Status: FULL: Full Resuscitation Vital Signs & Weight: Vital Signs (12 hours) Temp Pulse Ox 08/02/18 15:34 97.4 F L 08/02/18 11:07 97.9 F 08/02/18 07:28 99 08/02/18 07:11 97.5 F L 08/02/18 03:58 98.4 F Weight Weight 183 lb 15.965 oz Most Recent Monitor Data Heart Rate from ECG 90 NIBP 131/73 NIBP BP-Mean 92 Respiration from ECG 26 SpO2 96 I&O: 08/01/18 08/02/18 08/03/18 06:59 06:59 06:59 Intake Total 6297 250 Output Total 2925 2300 Balance 3372 -2050 Result Diagrams: 08/01/18 09:46 08/02/18 14:40 Additional Labs: Accuchecks 08/02/18 08/02/18 08/02/18 10:52 08:13 06:54 POC Glucose 302 H 281 H 141 H 08/02/18 08/02/18 08/02/18 05:51 03:56 02:57 POC Glucose 124 H 165 H 204 H 08/02/18 08/02/18 08/02/18 01:56 01:03 00:05 POC Glucose 229 H 238 H 267 H 08/01/18 08/01/18 08/01/18 22:57 22:01 21:04 POC Glucose 266 H 338 H 300 H 08/01/18 08/01/18 08/01/18 19:58 18:55 18:05 POC Glucose 133 H 86 110 08/01/18 08/01/18 08/01/18 17:05 15:53 14:49 POC Glucose 141 H 231 H 279 H Phys Exam - Physical Examination Constitutional: NAD HEENT: PERRLA Neck: supple Respiratory: no wheezing, no rales, no rhonchi, clear to auscultation bilateral Cardiovascular: RRR, no significant murmur Gastrointestinal: soft, non-tender, no distention, positive bowel sounds Musculoskeletal: no edema Neurological: non-focal, moves all 4 limbs Psychiatric: A&O x 3 Dx/Plan (1) Acute sinusitis Code(s): J01.90 - ACUTE SINUSITIS, UNSPECIFIED Status: Acute (2) Hyponatremia Code(s): E87.1 - HYPO-OSMOLALITY AND HYPONATREMIA Status: Acute (3) Dehydration Code(s): E86.0 - DEHYDRATION Status: Acute (4) Metabolic acidosis Code(s): E87.2 - ACIDOSIS Status: Acute (5) MONICA (acute kidney injury) Code(s): N17.9 - ACUTE KIDNEY FAILURE, UNSPECIFIED Status: Acute (6) Asthma Code(s): J45.909 - UNSPECIFIED ASTHMA, UNCOMPLICATED Status: Acute (7) DKA (diabetic ketoacidoses) Code(s): E13.10 - OTH DIABETES MELLITUS WITH KETOACIDOSIS WITHOUT COMA Status : Acute (8) Hyperkalemia Code(s): E87.5 - HYPERKALEMIA Status: Acute - Plan DC NS and start Bicarb containing IVF due to hyperchloremic acidosis -: Restart Insulin via inpulin pump -: Monitor electrolytes and correct as appropriate -: Repeat BMP at 2000hr and in the am. -: Can be transfered to medical floor. Contginue antibiotic. * .
[2018-08-02] MEDS: Lactated Ringer's 1,000 ML IV SCH (17:07)
[2018-08-02 20:49] LABS: Anion Gap 11 mmol/L (10-20); BUN (Urea Nitrogen) 7 mg/dL (7.0-18.7); Calc. Creatinine Clearance 108 mL/min (70-130); Carbon Dioxide 21 mmol/L (22-29); Chloride 104 mmol/L (98-107); Estimated GFR-MDRD 77; Glucose 280 mg/dL (70-105); Sodium 132 mmol/L (136-145)
[2018-08-03] MEDS: Lactated Ringer's 1,000 ML IV SCH ×5 (01:04→18:56)
[2018-08-03 06:26] LABS: Hemoglobin 11.7 g/dL (12.0-16.0); Mean Corpuscular HGB CONC 34.4 g/dL (32.0-36.0); Mean Corpuscular Hemoglobin 30.7 pg (27.0-31.0); Mean Corpuscular Volume 89.1 fL (78.0-98.0); Mean Platelet Volume 7.1 fL (7.4-10.4); Platelet Count 244 thou/uL (130-400); RBC Distribution Width 12.2 % (11.5-14.5); Red Blood Cell (RBC) Count 3.83 mill/uL (4.20-5.40); White Blood Cell (WBC) Count 3.9 thou/uL (4.8-10.8)
[2018-08-03 06:30] LABS: Anion Gap 10 mmol/L (10-20); BUN (Urea Nitrogen) 6 mg/dL (7.0-18.7); Calc. Creatinine Clearance 149 mL/min (70-130); Calcium 8.6 mg/dL (7.8-10.44); Carbon Dioxide 23 mmol/L (22-29); Chloride 107 mmol/L (98-107); Estimated GFR-MDRD Greater than 90; Glucose 173 mg/dL (70-105); Magnesium 1.5 mg/dL (1.6-2.6); Potassium 3.8 mmol/L (3.5-5.1); Sodium 136 mmol/L (136-145)
[2018-08-03 06:54] LABS: Lymphocytes 47 % (21-51); MDiff Complete? YES; Monocytes 12 % (0-10); Neutrophil 41 % (42-75); Platelet Morphology Comment Appears Adequate; RBC Morphology Normal
[2018-08-03] MEDS: Enoxaparin Sodium 40 MG/0.4 ML SYRINGE SC SCH (08:59)
[2018-08-03] MEDS: Famotidine 20 MG TAB PO SCH ×2 (08:59→20:17)
[2018-08-03] MEDS: Insulin Glargine 20 UNITS in Pre-Filled Syringe 1 EACH SC SCH (09:03)
[2018-08-03] MEDS: cefTRIAXone\\ROCEPHIN 2 GM in Sodium Chloride 0.9% 100 ML IVPB SCH (13:32)
--- NOTE | 2018-08-03 20:08 | PDOC.PN ---
- Subjective Encounter Start Date: 08/03/18 Encounter Start Time: 11:30 Subjective: pt up in bed no complains - Objective Resuscitation Status - Order Detail: 08/01/18 13:45 Resuscitation Status Routine Resuscitation Status: FULL: Full Resuscitation Vital Signs & Weight: Vital Signs (12 hours) Temp Pulse Resp BP Pulse Ox 08/03/18 16:00 98.3 F 77 18 111/77 99 08/03/18 12:00 98.1 F 87 18 118/83 100 Weight Weight 183 lb 15.965 oz Most Recent Monitor Data Heart Rate from ECG 87 NIBP 131/73 NIBP BP-Mean 92 Respiration from ECG 24 SpO2 96 I&O: 08/02/18 08/03/18 08/04/18 06:59 06:59 06:59 Intake Total 6297 250 2470 Output Total 2925 2300 Balance 3372 -2050 2470 Result Diagrams: 08/03/18 05:43 08/03/18 05:43 Additional Labs: Accuchecks 08/03/18 08/03/18 08/03/18 16:21 11:04 09:32 POC Glucose 190 H 153 H 95 08/03/18 08/03/18 08/02/18 03:07 02:14 19:24 POC Glucose 177 H 54 L* 344 H Phys Exam - Physical Examination Respiratory: no wheezing, no rales, no rhonchi, wheezing present, clear to auscultation bilateral Cardiovascular: RRR, no significant murmur, no rub, gallop, irregular Gastrointestinal: soft, non-tender, no distention, positive bowel sounds Musculoskeletal: no edema, pulses present, edema present Dx/Plan (1) Acute sinusitis Code(s): J01.90 - ACUTE SINUSITIS, UNSPECIFIED Status: Acute (2) DKA (diabetic ketoacidoses) Code(s): E13.10 - OTH DIABETES MELLITUS WITH KETOACIDOSIS WITHOUT COMA Status : Acute (3) Dehydration Code(s): E86.0 - DEHYDRATION Status: Acute (4) Hyperkalemia Code(s): E87.5 - HYPERKALEMIA Status: Acute - Plan pt became hypoglycemia last night -: will monitor for one more day * . Review of Systems - Review of Systems Respiratory: negative: Cough, Dry, Shortness of Breath, Hemoptysis, SOB with Excertion, Pleuritic Pain, Sputum, Wheezing Cardiovascular: negative: chest pain, palpitations, orthopnea, paroxysmal nocturnal dyspnea, edema, light headedness, other Gastrointestinal: negative: Nausea, Vomiting, Abdominal Pain, Diarrhea, Constipation, Melena, Hematochezia, Other - Medications/Allergies Allergies/Adverse Reactions: Allergies Allergy/AdvReac Type Severity Reaction Status Date / Time codeine [Codeine] Allergy Mild Verified 08/04/12 12:10 pseudoephedrine Allergy Mild Verified 08/04/12 12:10 hydrocodone Allergy Verified 04/24/13 04:05 TAPE Allergy Mild Uncoded 08/04/12 03:20 Medications: Current Medications Acetaminophen (Tylenol) 650 mg PO Q4H PRN PRN Reason: Headache/Fever/Mild Pain (1-3) Last Admin: 08/01/18 21:14 Dose: 650 mg Albuterol Sulfate (Albuterol Sulfate) 1.25 mg NEB [id number] PRN PRN Reason: Wheezing Dextrose/Water (Dextrose 50%) 25 gm SLOW IVP PRN PRN PRN Reason: Hypoglycemia Enoxaparin Sodium (Lovenox) 40 mg SC 0900 RASHAUN Last Admin: 08/03/18 08:59 Dose: Not Given Famotidine (Pepcid) 20 mg PO BID RASHAUN Last Admin: 08/03/18 08:59 Dose: 20 mg Glucagon (Glucagon) 1 mg IM PRN PRN PRN Reason: Hypoglycemia Insulin Human Regular 100 (units/ Sodium Chloride) 101 mls @ 0 mls/hr IVPB INF RASHAUN; Protocol Dextrose/Sodium Chloride (D5 1/2 Ns) 1,000 mls @ 250 mls/hr IV .Q4H PRN; Protocol PRN Reason: Step 4 of DKA Protocol Last Admin: 08/01/18 18:55 Dose: 1,000 mls Potassium Chloride/Dextrose/Sod Cl (D5 1/2 Ns W/20 Meq Kcl) 1,000 mls @ 250 mls /hr IV .Q4H PRN; Protocol PRN Reason: Step 4 of DKA Protocol Last Admin: 08/02/18 02:52 Dose: 1,000 mls Ceftriaxone Sodium 2 gm/ (Sodium Chloride) 100 mls @ 200 mls/hr IVPB 1400 RASHAUN Last Admin: 08/03/18 13:32 Dose: 100 mls Potassium Chloride 40 meq/ (Sodium Chloride) 270 mls @ 135 mls/hr IVPB ASDIR PRN PRN Reason: FOR SERUM K+ 2.5 - 3.5 Potassium Chloride 40 meq/ (Device) 100 mls @ 50 mls/hr IVPB ASDIR PRN PRN Reason: FOR SERUM K+ 2.5 - 3.5 Magnesium Sulfate 1 gm/ Sodium (Chloride) 102 mls @ 102 mls/hr IV PRN PRN PRN Reason: MAG LEVEL 1.4 - 2.0 Magnesium Sulfate 2 gm/ Device 50 mls @ 50 mls/hr IVPB ASDIR PRN PRN Reason: MAGNESIUM < 1.4 Potassium Phosphate 9 mmol/ (Sodium Chloride) 103 mls @ 25.75 mls/hr IVPB ASDIR PRN PRN Reason: Phosphate 1.0-1.8 Potassium Phosphate 12 mmol/ (Sodium Chloride) 254 mls @ 63.5 mls/hr IV ASDIR PRN PRN Reason: Serum phosphate 0.5-0.9 Potassium Phosphate 15 mmol/ (Sodium Chloride) 255 mls @ 63.75 mls/hr IV ASDIR PRN PRN Reason: Serum Phos < 0.5 Insulin Glargine 20 units/ (Miscellaneous Medication) 0.2 mls @ 0 mls/hr [facility] [place] Last Admin: 08/03/18 09:03 Dose: Not Given Dextrose/Water (D5w) 1,000 mls @ 0 mls/hr IV .Q0M PRN PRN Reason: Hypoglycemia Lactated Ringer's (Lactated Ringer's) 1,000 mls @ 150 mls/hr IV .Q6H40M [facility] Last Admin: 08/03/18 18:56 Dose: 1,000 mls Insulin Human Lispro (Humalog) 0 units SC .MODERATE SLIDING SC PRN PRN Reason: Moderate Correctional Scale Last Admin: 08/02/18 11:34 Dose: 8 unit Magnesium Oxide (Magnesium Oxide) 400 mg PO BIDPRN PRN PRN Reason: FOR SERUM MAG 1.4 - 2.0 Magnesium Oxide (Magnesium Oxide) 800 mg PO PRN PRN PRN Reason: FOR SERUM MAG < 1.4 Miscellaneous Medication (Phos-Nak) 1 pkt PO TIDPRN PRN PRN Reason: FOR PHOS LEVEL 1.0 - 1.8 Miscellaneous Medication (Phos-Nak) 2 pkt PO TIDPRN PRN PRN Reason: FOR PHOS LEVEL 0.5 - 1.0 Ccu Electrolyte (Replacement Protocol) 0 each FS PRN PRN PRN Reason: FOR ELECTROLYTE REPLACEMENT Ondansetron HCl (Zofran Odt) 4 mg PO Q6H PRN PRN Reason: Nausea/Vomiting Ondansetron HCl (Zofran) 4 mg IVP Q6H PRN PRN Reason: Nausea/Vomiting Potassium Chloride (K-Dur) 40 meq PO ASDIR PRN PRN Reason: FOR SERUM K+ 2.5 - 3.5 Potassium Chloride (Klor-Con) 40 meq PER TUBE ASDIR PRN PRN Reason: FOR SERUM K+ 2.5-3.5
[2018-08-04] MEDS: Lactated Ringer's 1,000 ML IV SCH ×4 (01:15→22:43)
[2018-08-04 05:44] LABS: Anion Gap 11 mmol/L (10-20); BUN (Urea Nitrogen) 7 mg/dL (7.0-18.7); Calc. Creatinine Clearance 172 mL/min (70-130); Carbon Dioxide 27 mmol/L (22-29); Chloride 103 mmol/L (98-107); Estimated GFR-MDRD Greater than 90; Potassium 3.2 mmol/L (3.5-5.1); Sodium 138 mmol/L (136-145)
[2018-08-04 05:46] LABS: Glucose 58 mg/dL (70-105)
[2018-08-04] MEDS: Famotidine 20 MG TAB PO SCH ×2 (07:56→20:07)
[2018-08-04] MEDS: Potassium Chloride 20 MEQ TAB PO SCH ×2 (07:56→16:59)
[2018-08-04] MEDS: Enoxaparin Sodium 40 MG/0.4 ML SYRINGE SC SCH (07:57)
[2018-08-04] MEDS: Insulin Glargine 20 UNITS in Pre-Filled Syringe 1 EACH SC SCH (08:01)
[2018-08-04] MEDS: cefTRIAXone\\ROCEPHIN 2 GM in Sodium Chloride 0.9% 100 ML IVPB SCH (14:06)
--- NOTE | 2018-08-04 14:11 | PDOC.PN ---
- Subjective Encounter Start Date: 08/04/18 Encounter Start Time: 11:00 Subjective: pt up in bed feels well but was scared yestarday due to -: hypoglycemia and she did not have any symptoms - Objective Resuscitation Status - Order Detail: 08/01/18 13:45 Resuscitation Status Routine Resuscitation Status: FULL: Full Resuscitation Vital Signs & Weight: Vital Signs (12 hours) Temp Pulse Resp BP Pulse Ox 08/04/18 08:00 98 08/04/18 07:36 98.2 F 65 16 114/75 98 Weight Weight 183 lb 15.965 oz Most Recent Monitor Data Heart Rate from ECG 87 NIBP 131/73 NIBP BP-Mean 92 Respiration from ECG 24 SpO2 96 I&O: 08/03/18 08/04/18 08/05/18 06:59 06:59 06:59 Intake Total 250 2470 360 Output Total 2300 Balance -2049 2470 360 Result Diagrams: 08/03/18 05:43 08/04/18 04:45 Additional Labs: Accuchecks 08/04/18 08/04/18 08/04/18 11:35 05:39 04:45 POC Glucose 269 H 122 H 56 L* 08/03/18 08/03/18 08/03/18 22:40 20:00 16:21 POC Glucose 72 170 H 190 H Phys Exam - Physical Examination Neck: no nodes, no JVD, supple, full ROM Respiratory: no wheezing, no rales, no rhonchi, wheezing present, clear to auscultation bilateral Cardiovascular: RRR, no significant murmur, no rub, gallop, irregular Gastrointestinal: soft, non-tender, no distention, positive bowel sounds Dx/Plan (1) Acute sinusitis Code(s): J01.90 - ACUTE SINUSITIS, UNSPECIFIED Status: Acute (2) DKA (diabetic ketoacidoses) Code(s): E13.10 - OTH DIABETES MELLITUS WITH KETOACIDOSIS WITHOUT COMA Status : Acute (3) Dehydration Code(s): E86.0 - DEHYDRATION Status: Acute (4) Hyperkalemia Code(s): E87.5 - HYPERKALEMIA Status: Acute - Plan pt does not feel comfortable going home due to low bs -: last night. I have told her she needs to give herself less -: bolus since she is not eating much. she understants -: possible discharge in am * . Review of Systems - Review of Systems Respiratory: negative: Cough, Dry, Shortness of Breath, Hemoptysis, SOB with Excertion, Pleuritic Pain, Sputum, Wheezing Cardiovascular: negative: chest pain, palpitations, orthopnea, paroxysmal nocturnal dyspnea, edema, light headedness, other Gastrointestinal: negative: Nausea, Vomiting, Abdominal Pain, Diarrhea, Constipation, Melena, Hematochezia, Other - Medications/Allergies Allergies/Adverse Reactions: Allergies Allergy/AdvReac Type Severity Reaction Status Date / Time codeine [Codeine] Allergy Mild Verified 08/04/12 12:10 pseudoephedrine Allergy Mild Verified 08/04/12 12:10 hydrocodone Allergy Verified 04/24/13 04:05 TAPE Allergy Mild Uncoded 08/04/12 03:20 Medications: Current Medications Acetaminophen (Tylenol) 650 mg PO Q4H PRN PRN Reason: Headache/Fever/Mild Pain (1-3) Last Admin: 08/01/18 21:14 Dose: 650 mg Albuterol Sulfate (Albuterol Sulfate) 1.25 mg NEB [id number] PRN PRN Reason: Wheezing Dextrose/Water (Dextrose 50%) 25 gm SLOW IVP PRN PRN PRN Reason: Hypoglycemia Enoxaparin Sodium (Lovenox) 40 mg SC 0900 [facility] Last Admin: 08/04/18 07:57 Dose: 40 mg Famotidine (Pepcid) 20 mg PO BID RASHAUN Last Admin: 08/04/18 07:56 Dose: 20 mg Glucagon (Glucagon) 1 mg IM PRN PRN PRN Reason: Hypoglycemia Insulin Human Regular 100 (units/ Sodium Chloride) 101 mls @ 0 mls/hr IVPB INF RASHAUN; Protocol Dextrose/Sodium Chloride (D5 1/2 Ns) 1,000 mls @ 250 mls/hr IV .Q4H PRN; Protocol PRN Reason: Step 4 of DKA Protocol Last Admin: 08/01/18 18:55 Dose: 1,000 mls Potassium Chloride/Dextrose/Sod Cl (D5 1/2 Ns W/20 Meq Kcl) 1,000 mls @ 250 mls /hr IV .Q4H PRN; Protocol PRN Reason: Step 4 of DKA Protocol Last Admin: 08/02/18 02:52 Dose: 1,000 mls Ceftriaxone Sodium 2 gm/ (Sodium Chloride) 100 mls @ 200 mls/hr IVPB 1400 [facility] Last Admin: 08/03/18 13:32 Dose: 100 mls Insulin Glargine 20 units/ (Miscellaneous Medication) 0.2 mls @ 0 mls/hr SC QAM [facility] Last Admin: 08/04/18 08:01 Dose: Not Given Dextrose/Water (D5w) 1,000 mls @ 0 mls/hr IV .Q0M PRN PRN Reason: Hypoglycemia Lactated Ringer's (Lactated Ringer's) 1,000 mls @ 150 mls/hr IV .Q6H40M [facility] Last Admin: 08/04/18 07:55 Dose: 1,000 mls Insulin Human Lispro (Humalog) 0 units SC .MODERATE SLIDING SC PRN PRN Reason: Moderate Correctional Scale Last Admin: 08/02/18 11:34 Dose: 8 unit Ondansetron HCl (Zofran Odt) 4 mg PO Q6H PRN PRN Reason: Nausea/Vomiting Ondansetron HCl (Zofran) 4 mg IVP Q6H PRN PRN Reason: Nausea/Vomiting Potassium Chloride (K-Dur) 40 meq PO BID-[facility] Stop: 08/04/18 17:01 Last Admin: 08/04/18 07:56 Dose: 40 meq
[2018-08-04] MEDS: Acetaminophen 325 MG TAB PO PRN (20:07)
[2018-08-05] MEDS: Lactated Ringer's 1,000 ML IV SCH ×2 (04:41→05:24)
[2018-08-05 06:00] LABS: Anion Gap 9 mmol/L (10-20); BUN (Urea Nitrogen) 8 mg/dL (7.0-18.7); Calc. Creatinine Clearance 155 mL/min (70-130); Calcium 8.8 mg/dL (7.8-10.44); Carbon Dioxide 30 mmol/L (22-29); Chloride 99 mmol/L (98-107); Estimated GFR-MDRD Greater than 90; Glucose 258 mg/dL (70-105); Potassium 3.9 mmol/L (3.5-5.1)
[2018-08-05 06:10] LABS: Sodium 134 mmol/L (136-145)
[2018-08-05 07:48] VITALS: BP 106/71; TEMP 98.3
[2018-08-05] MEDS: Famotidine 20 MG TAB PO SCH (07:51)
[2018-08-05] MEDS: Enoxaparin Sodium 40 MG/0.4 ML SYRINGE SC SCH (07:52)
[2018-08-05] MEDS: Insulin Glargine 20 UNITS in Pre-Filled Syringe 1 EACH SC SCH (07:55)
--- NOTE | 2018-08-06 04:30 | DIS ---
DATE OF ADMISSION: 08/01/2018 DATE OF DISCHARGE: 08/05/2018 DISCHARGE DIAGNOSES: As of the following. 1. Acute sinusitis. 2. Diabetic ketoacidosis. 3. Dehydration. HOSPITAL COURSE: The patient is a very pleasant 27-year-old female who initially presented to the hospital on the with complaints of generalized weakness. The patient was found to be in DKA. She was initially treated in the IMCU with insulin drip. The patient's gap closed. She was transferred to the floor. She does have an insulin pump, which was restarted. The patient continued to improve throughout the hospital stay. She also was treated for possible sinusitis with antibiotics. The patient, over the hospital course, had a couple episodes of hypoglycemia since she was not eating much and was self-administering her insulin. However, on discharge, the patient was stable and she was discharged home. MEDICATIONS: She is on an insulin pump, although she does have a basal and she gives herself boluses as needed. Also, she has an Advair Diskus 1 puff b.i.d. She also will be sent home on Augmentin 875/125, total of 7 days. PHYSICAL EXAMINATION: VITAL SIGNS: Temperature of 98.3, 81, 16, 98% on room air, 106/71. GENERAL: She is awake, alert, and oriented x3. Does not appear to be in pain or distress. CV: S1 and S2 present. No murmurs, rubs, or gallops. ABDOMEN: Soft and nontender. Bowel sounds are present x2. EXTREMITIES: No edema. Distal pulses are present x2. Job ID: [id number]
== END 2018-08-05 11:10 | disposition home or self-care (01) | DRG 638 ==
LOC: ERS 09:07 → IMCU/EMU 12:40 → T4-A 08-02 17:48
PROVIDERS: ADMIT Internal Medicine; ATTEND Internal Medicine
DX: E10.10 Type 1 diabetes mellitus with ketoacidosis without coma (principal); E87.1 Hypo-osmolality and hyponatremia; N17.9 Acute kidney failure, unspecified; J01.90 Acute sinusitis, unspecified; E87.5 Hyperkalemia; E86.0 Dehydration; J45.909 Unspecified asthma, uncomplicated; F31.9 Bipolar disorder, unspecified; F41.9 Anxiety disorder, unspecified; Z88.5 Allergy status to narcotic agent; Z88.8 Allergy status to other drugs, medicaments and biological substances; Z79.4 Long term (current) use of insulin; Z79.01 Long term (current) use of anticoagulants; Z86.718 Personal history of other venous thrombosis and embolism
CPT/HCPCS: 36415; 36416; 71045; 80048; 80053; 81003; 81015; 82010; 82330; 82803; 83735; 83930; 83935; 84100; 84484; 85025; 87081; 87430; 93005; 96361; 96365; 96366; 96372; J0696; J1650; J1815; J1825; J2405; J2550; J3475; J3480; J3490

== ENCOUNTER 2021-08-28 08:10 | Observation (INO) | payer OTHER ==
[2021-08-28 08:48] LABS: Hemoglobin 15.2 g/dL (12.0-16.0); Mean Corpuscular HGB CONC 33.8 g/dL (32.0-36.0); Mean Corpuscular Hemoglobin 32.3 pg (27.0-31.0); Mean Corpuscular Volume 95.6 fL (78.0-98.0); Mean Platelet Volume 7.8 fL (7.4-10.4); Platelet Count 185 thou/uL (130-400); RBC Distribution Width 12.1 % (11.5-14.5); Red Blood Cell (RBC) Count 4.71 mill/uL (4.20-5.40); White Blood Cell (WBC) Count 7.3 thou/uL (4.8-10.8)
[2021-08-28 08:56] LABS: ALT (SGPT) 19 U/L (8-55); AST (SGOT) 20 U/L (5-34); Albumin 3.6 g/dL (3.5-5.0); Alkaline Phosphatase 125 U/L (40-110); Anion Gap 17 mmol/L (10-20); BUN (Urea Nitrogen) 9 mg/dL (7.0-18.7); Bilirubin, Total 0.6 mg/dL (0.2-1.2); CK (CPK) 263 U/L (29-168); Calc. Creatinine Clearance 0 mL/min (70-130); Calcium 9.2 mg/dL (7.8-10.44); Carbon Dioxide 18 mmol/L (22-29); Chloride 100 mmol/L (98-107); Estimated GFR 100; Globulin 3.8 g/dL (2.4-3.5); Glucose 282 mg/dL (70-105); Lipase 13 U/L (8-78); Potassium 4.3 mmol/L (3.5-5.1); Protein, Total 7.4 g/dL (6.0-8.3); Sodium 131 mmol/L (136-145)
[2021-08-28 08:58] LABS: Acetaminophen Less than 10.0 mcg/mL (10.0-30.0)
[2021-08-28 08:59] LABS: Alcohol Less than 10 mg/dL (Less than 10); Salicylate Less than 8.0 mg/dL (15.0-30.0)
[2021-08-28 09:07] LABS: Band 2 % (5-11); Eosinophils 1 % (0-10); Lymphocytes 30 % (21-51); MDiff Complete? YES; Monocytes 7 % (0-10); Neutrophil 55 % (42-75); Platelet Morphology Comment Appears Adequate; RBC Morphology Normal; Reactive Lymphocytes 5 % (0-10)
[2021-08-28 10:06] LABS: Actual Bicarbonate (HCO3v) 24 mEq/L (22-28); Analyzer IN Cardio ER; Base Excess 0.1 mEq/L (-2.0 to +3.0); Calcium, Ionized (venous) 0.99 mmol/L (1.16-1.32); Chloride (VBG) 100 mmol/L (98-106); Hemoglobin (Hb) 16.3 g/dL (11.7-15.5); Potassium (VBG) 3.88 mmol/L (3.70-5.30); Sodium 131.1 mmol/L (133-146); pH (venous) 7.44 (7.32-7.43)
[2021-08-28 11:13] LABS: SARS-CoV-2 NAA Rapid Test Not Detected (NotDetected)
[2021-08-28 11:14] LABS: Bilirubin Negative (Negative); Blood, Urine Negative (Negative); Clarity Clear (Clear); Glucose, Urine (Dipstick) Greater than 1000 mg/dL (Negative); Ketone, Urine Negative (Negative); Leukocyte Negative Leu/uL (Negative); Nitrite Negative (Negative); Protein, Urine (Dipstick) 10 mg/dL (Neg-Trace); Specific Gravity, Urine 1.017 (1.002-1.036); Urobilinogen Normal mg/dL (Less than 2)
[2021-08-28 11:22] LABS: Amphetamine Not Detected (NotDetected); Barbiturates Screen Not Detected (NotDetected); Benzodiazepine Screen Not Detected (NotDetected); Cocaine Metabolite Screen Not Detected (NotDetected); Methadone Not Detected (NotDetected); Methamphetamine Not Detected (NotDetected); Opiate Screen Not Detected (NotDetected); Oxycodone Screen Not Detected (NotDetected); Phencyclidine (PCP) Not Detected (NotDetected); THC/Cannabinoid Screen Not Detected (NotDetected); Tricyclic Screen Not Detected (NotDetected)
[2021-08-28] MEDS ORDERED: Aspirin Chewable 81 MG TAB ONE (11:36)
[2021-08-28] MEDS ORDERED: Dextrose 50% Abboject 50 ML SYRINGE SLOW IVP PRN (12:44)
[2021-08-28] MEDS ORDERED: Dextrose 5% in Water 1,000 ML IV PRN (12:44)
[2021-08-28] MEDS ORDERED: Senokot S 8.6-50 MG TAB PO PRN (12:48)
[2021-08-28] MEDS ORDERED: Acetaminophen 325 MG TAB PO PRN (12:48)
[2021-08-28] MEDS ORDERED: Ondansetron ODT 4 MG TAB PO PRN (12:48)
[2021-08-28] MEDS ORDERED: Ondansetron PF 4 MG/2 ML Vial IVP PRN (12:48)
[2021-08-28] MEDS ORDERED: Albuterol Sulfate 2.5 mg/3 ml Neb NEB PRN (13:17)
[2021-08-28] MEDS ORDERED: Benzonatate 100 MG CAP PO PRN (13:17)
[2021-08-28] MEDS ORDERED: guaiFENesin 200 MG TAB PO PRN (13:18)
[2021-08-28 13:25] VITALS: BMI 37.5
[2021-08-28 13:41] LABS: Troponin I Less than 0.010 ng/mL (< 0.028)
[2021-08-28] MEDS: Sodium Chloride 0.9% 1,000 ML IV SCH (15:44)
[2021-08-28 17:54] LABS: Troponin I Less than 0.010 ng/mL (< 0.028)
[2021-08-28] MEDS: Famotidine 20 MG TAB PO SCH (20:32)
[2021-08-28] MEDS: Atorvastatin Calcium 20 MG TAB PO SCH (20:50)
[2021-08-29] MEDS: Sodium Chloride 0.9% 1,000 ML IV SCH ×2 (01:37→09:36)
[2021-08-29 05:29] LABS: #Eosinphils 0.3 thou/uL (0.0-0.7); #Monocytes 0.5 thou/uL (0.11-0.59); #Neutrophils 4.3 thou/uL (1.40-6.50); %Basophils 0.2 % (0.0-1.0); %Eosinophils 4.2 % (0.0-10.0); %Lymphocytes 37.3 % (21.0-51.0); %Monocytes 5.8 % (0.0-10.0); %Neutrophils 52.5 % (42.0-75.0); Hemoglobin 13.3 g/dL (12.0-16.0); Mean Corpuscular HGB CONC 33.7 g/dL (32.0-36.0); Mean Corpuscular Hemoglobin 32.4 pg (27.0-31.0); Mean Corpuscular Volume 96.1 fL (78.0-98.0); Mean Platelet Volume 7.3 fL (7.4-10.4); Platelet Count 260 thou/uL (130-400); Red Blood Cell (RBC) Count 4.11 mill/uL (4.20-5.40); White Blood Cell (WBC) Count 8.1 thou/uL (4.8-10.8)
[2021-08-29 05:32] LABS: Hemoglobin A1c 10.6 % (4.0-6.0)
[2021-08-29 05:46] LABS: Anion Gap 12 mmol/L (10-20); BUN (Urea Nitrogen) 9 mg/dL (7.0-18.7); Calc. Creatinine Clearance 164 mL/min (70-130); Calcium 8.4 mg/dL (7.8-10.44); Carbon Dioxide 23 mmol/L (22-29); Chloride 105 mmol/L (98-107); Estimated GFR 111; Glucose 160 mg/dL (70-105); Potassium 3.6 mmol/L (3.5-5.1); Sodium 136 mmol/L (136-145)
[2021-08-29] MEDS: Atorvastatin Calcium 20 MG TAB PO SCH (09:23)
[2021-08-29] MEDS: Famotidine 20 MG TAB PO SCH (09:23)
[2021-08-29 15:53] VITALS: BP 132/75; TEMP 98.4
[2021-08-29] MEDS ORDERED: Atorvastatin Calcium 20 MG TAB PO SCH (21:00)
== END 2021-08-29 17:17 | disposition home or self-care (01) ==
LOC: ERS 08:10 → ERHOLD 12:34 → NEURO 14:44
PROVIDERS: ADMIT Internal Medicine; ATTEND Internal Medicine
DX: R41.82 Altered mental status, unspecified (principal); R55 Syncope and collapse; E87.1 Hypo-osmolality and hyponatremia; E10.9 Type 1 diabetes mellitus without complications; J45.909 Unspecified asthma, uncomplicated; E66.9 Obesity, unspecified; Z68.37 Body mass index [BMI] 37.0-37.9, adult; Z79.899 Other long term (current) drug therapy; Z88.5 Allergy status to narcotic agent; Z88.8 Allergy status to other drugs, medicaments and biological substances; Z91.048 Other nonmedicinal substance allergy status; Z96.41 Presence of insulin pump (external) (internal); Z20.822 Contact with and (suspected) exposure to COVID-19
CPT/HCPCS: 36415; 36416; 51701; 70450; 71045; 80048; 80053; 80306; 80307; 81003; 82010; 82140; 82550; 82805; 83036; 83690; 83880; 84146; 84443; 84484; 85025; 93005; 93306; 96360; 96361; G0378; J7050; U0002

== ENCOUNTER 2021-09-09 16:59 | Emergency (ER) | payer OTHER ==
[2021-09-09 17:56] LABS: Bilirubin Negative (Negative); Blood, Urine Negative (Negative); Clarity Clear (Clear); Glucose, Urine (Dipstick) Greater than 1000 mg/dL (Negative); Ketone, Urine Negative (Negative); Leukocyte Negative Leu/uL (Negative); Nitrite Negative (Negative); Pregnancy Test - Urine (BHCG) Negative (Negative); Pregu Control Background? CLEAR/WHITE (CLR/WHITE); Pregu Control Bar Appear? YES (CONTROL BAR); Protein, Urine (Dipstick) Negative (Neg-Trace); Specific Gravity 1.036 (1.002-1.036); Specific Gravity, Urine 1.036 (1.002-1.036); Urobilinogen Normal mg/dL (Less than 2)
[2021-09-10 12:29] LABS: Chlamydia by PCR Not Detected (NotDetected); GC by PCR Not Detected (NotDetected)
== END 2021-09-09 18:58 | disposition home or self-care (01) ==
LOC: ERS 16:59
DX: N89.8 Other specified noninflammatory disorders of vagina (principal); E10.9 Type 1 diabetes mellitus without complications; J45.909 Unspecified asthma, uncomplicated; D25.9 Leiomyoma of uterus, unspecified; Z79.4 Long term (current) use of insulin; Z79.899 Other long term (current) drug therapy
CPT/HCPCS: 81003; 81025; 87480; 87491; 87510; 87591; 87660; 99283

== ENCOUNTER 2021-09-25 12:47 | Emergency (ER) | payer OTHER ==
[2021-09-25] MEDS ORDERED: Ketorolac Tromethamine 30 MG/ML VIAL ONE (13:29)
[2021-09-25] MEDS ORDERED: Morphine 4 MG/ML VIAL ONE (14:24)
[2021-09-25 15:09] LABS: Bacteria/HPF None Seen HPF (None Seen); Bilirubin Negative (Negative); Blood, Urine Negative (Negative); Clarity Clear (Clear); Glucose, Urine (Dipstick) Greater than 1000 mg/dL (Negative); Ketone, Urine Negative (Negative); Leukocyte 75 Leu/uL (Negative); Nitrite Negative (Negative); Protein, Urine (Dipstick) 10 mg/dL (Neg-Trace); RBC/HPF 0-3 HPF (0-3); Squamous Epithelial 0-3 HPF (0-3); Urobilinogen Normal mg/dL (Less than 2); pH, Urine 6.5 (5.0-9.0)
== END 2021-09-25 15:48 | disposition home or self-care (01) ==
LOC: ERS 12:47
DX: S39.012A Strain of muscle, fascia and tendon of lower back, initial encounter (principal); E10.9 Type 1 diabetes mellitus without complications; Z79.899 Other long term (current) drug therapy; Z79.4 Long term (current) use of insulin; X58.XXXA Exposure to other specified factors, initial encounter
CPT/HCPCS: 81003; 81015; 96372; 99283; J1885; J2270

== ENCOUNTER 2021-10-04 03:07 | Emergency (ER) | payer OTHER ==
[2021-10-04] MEDS ORDERED: Dexamethasone 10 MG/ML VIAL ONE (04:16)
[2021-10-04] MEDS ORDERED: Lidocaine Viscous Sol 2% 15 ml UD Cup ONE (04:16)
== END 2021-10-04 04:28 | disposition home or self-care (01) ==
LOC: ERS 03:07
DX: J32.9 Chronic sinusitis, unspecified (principal); E10.9 Type 1 diabetes mellitus without complications; Z79.4 Long term (current) use of insulin; Z79.899 Other long term (current) drug therapy
CPT/HCPCS: 99283; J1100

== ENCOUNTER 2021-12-10 11:01 | Emergency (ER) | payer OTHER ==
[2021-12-10 11:55] LABS: #Eosinphils 0.2 thou/uL (0.0-0.7); #Monocytes 0.5 thou/uL (0.11-0.59); #Neutrophils 3.4 thou/uL (1.40-6.50); %Basophils 0.2 % (0.0-1.0); %Eosinophils 3.6 % (0.0-10.0); %Lymphocytes 32.9 % (21.0-51.0); %Monocytes 7.4 % (0.0-10.0); %Neutrophils 55.9 % (42.0-75.0); Hemoglobin 13.4 g/dL (12.0-16.0); Mean Corpuscular HGB CONC 32.4 g/dL (32.0-36.0); Mean Corpuscular Hemoglobin 30.5 pg (27.0-31.0); Mean Corpuscular Volume 94.2 fL (78.0-98.0); Mean Platelet Volume 6.8 fL (7.4-10.4); Platelet Count 271 thou/uL (130-400); RBC Distribution Width 11.8 % (11.5-14.5); Red Blood Cell (RBC) Count 4.39 mill/uL (4.20-5.40); White Blood Cell (WBC) Count 6.1 thou/uL (4.8-10.8)
[2021-12-10 12:13] LABS: ALT (SGPT) 16 U/L (8-55); AST (SGOT) 17 U/L (5-34); Albumin 3.5 g/dL (3.5-5.0); Alkaline Phosphatase 100 U/L (40-110); Anion Gap 11 mmol/L (10-20); BUN (Urea Nitrogen) 9 mg/dL (7.0-18.7); Bilirubin, Total 0.4 mg/dL (0.2-1.2); Calc. Creatinine Clearance 0 mL/min (70-130); Calcium 8.3 mg/dL (7.8-10.44); Carbon Dioxide 22 mmol/L (22-29); Chloride 106 mmol/L (98-107); Estimated GFR 112; Glucose 93 mg/dL (70-105); Lipase Less than 4 U/L (8-78); Protein, Total 6.5 g/dL (6.0-8.3); Sodium 135 mmol/L (136-145)
[2021-12-10] MEDS ORDERED: Iopamidol 370 76% 50 ML VIAL FS ONE (14:35)
[2021-12-10 15:07] LABS: Bacteria/HPF None Seen HPF (None Seen); Bilirubin Negative (Negative); Blood, Urine Negative (Negative); Clarity Clear (Clear); Glucose, Urine (Dipstick) 30 mg/dL (Negative); Ketone, Urine Negative (Negative); Leukocyte Negative Leu/uL (Negative); Nitrite Negative (Negative); Protein, Urine (Dipstick) 30 mg/dL (Neg-Trace); RBC/HPF 0-3 HPF (0-3); Squamous Epithelial 0-3 HPF (0-3); Urobilinogen Normal mg/dL (Less than 2); WBC/HPF 0-3 HPF (0-3); pH, Urine 6.5 (5.0-9.0)
[2021-12-10] MEDS ORDERED: Ketorolac Tromethamine 30 MG/ML VIAL ONE (16:54)
[2021-12-10] MEDS ORDERED: Morphine 4 MG/ML VIAL ONE (19:23)
== END 2021-12-10 20:10 | disposition home or self-care (01) ==
LOC: ERS 11:01
DX: R07.89 Other chest pain (principal); E10.9 Type 1 diabetes mellitus without complications; Z79.899 Other long term (current) drug therapy
CPT/HCPCS: 36415; 71045; 71275; 80053; 81003; 81015; 83690; 84484; 85025; 93005; 94760; 96374; 96375; J1885; J2270; Q9967

== ENCOUNTER 2021-12-18 09:24 | Outpatient (CLI) | payer OTHER | END 2021-12-18 09:25 | disposition home or self-care (01) | LOC: SCSMRI 09:24 | PROVIDERS: ATTEND Physician Assistant | DX: M54.50 Low back pain, unspecified (principal); G62.9 Polyneuropathy, unspecified; M47.816 Spondylosis without myelopathy or radiculopathy, lumbar region | CPT/HCPCS: 72148 ==

== ENCOUNTER 2022-02-12 20:48 | Inpatient (IN) | payer OTHER ==
[~2022-02-12 20:48] MED LIST: Iopamidol-370 76% 500 ML 1 ML ONE
[2022-02-12] MEDS ORDERED: Insulin Regular 300 UNITS/3 ML VIAL ONE (21:28)
[2022-02-12 21:45] LABS: Actual Bicarbonate (HCO3v) 22 mEq/L (22-28); Analyzer IN Cardio ER; Calcium, Ionized (venous) 0.99 mmol/L (1.16-1.32); Chloride (VBG) 97 mmol/L (98-106); Hemoglobin (Hb) 15.8 g/dL (11.7-15.5); Potassium (VBG) 3.92 mmol/L (3.70-5.30); pH (venous) 7.45 (7.32-7.43)
[2022-02-12 21:49] LABS: #Eosinphils 0.4 thou/uL (0.0-0.7); #Lymphocytes 3.2 thou/uL (1.20-3.40); #Monocytes 0.6 thou/uL (0.11-0.59); #Neutrophils 4.8 thou/uL (1.40-6.50); %Basophils 0.5 % (0.0-1.0); %Lymphocytes 35.3 % (21.0-51.0); %Monocytes 7.1 % (0.0-10.0); %Neutrophils 53.2 % (42.0-75.0); Hemoglobin 14.2 g/dL (12.0-16.0); Mean Corpuscular HGB CONC 32.9 g/dL (32.0-36.0); Mean Corpuscular Hemoglobin 31.1 pg (27.0-31.0); Mean Corpuscular Volume 94.5 fl (78.0-98.0); Mean Platelet Volume 7.5 fL (7.4-10.4); Platelet Count 292 10x3/uL (130-400); RBC Distribution Width 11.8 % (11.5-14.5); Red Blood Cell (RBC) Count 4.57 mill/uL (4.20-5.40)
[2022-02-12 22:01] LABS: BHCG - Serum Negative (NEGATIVE); Pregs Control Background? CLEAR/WHITE (CLR/WHITE); Pregs Control Bar Appear? YES (CONTROL BAR)
[2022-02-12 22:05] LABS: ALT (SGPT) 19 U/L (8-55); AST (SGOT) 16 U/L (5-34); Alkaline Phosphatase 166 U/L (40-110); Anion Gap 15 mmol/L (10-20); BUN (Urea Nitrogen) 11 mg/dL (7.0-18.7); Bilirubin, Total 0.3 mg/dL (0.2-1.2); Calc. Creatinine Clearance 0 mL/min (70-130); Calcium 8.9 mg/dL (7.8-10.44); Carbon Dioxide 23 mmol/L (22-29); Chloride 98 mmol/L (98-107); Estimated GFR 74; Globulin 3.4 g/dL (2.4-3.5); Glucose 381 mg/dL (70-105); Potassium 4.2 mmol/L (3.5-5.1); Protein, Total 7.4 g/dL (6.0-8.3); Sodium 132 mmol/L (136-145)
[2022-02-12 22:08] LABS: INR-International Normal Ratio 0.8; Prothrombin Time 11.8 sec (12.0-14.7)
[2022-02-12 22:09] LABS: PTT 24.3 sec (22.9-36.1)
[2022-02-12 22:22] LABS: Lipase 8 U/L (8-78); Magnesium 1.7 mg/dL (1.6-2.6); Phosphorus 3.5 mg/dL (2.3-4.7)
[2022-02-12] MEDS ORDERED: Tenecteplase 50 MG ONE (22:37)
[2022-02-12] MEDS ORDERED: Ondansetron PF 4 MG/2 ML Vial ONE (22:47)
[2022-02-12] MEDS ORDERED: Morphine 4 MG/ML VIAL ONE (22:47)
[2022-02-13] MEDS ORDERED: Ondansetron PF 4 MG/2 ML Vial IVP PRN (00:21)
[2022-02-13] MEDS ORDERED: Acetaminophen 650 MG Suppository PR PRN (00:21)
[2022-02-13] MEDS ORDERED: Dextrose 5% in Water 1,000 ML IV PRN (00:23)
[2022-02-13] MEDS ORDERED: HumaLOG 300 UNITS/3 ML VIAL SC PRN ×2 (00:23)
[2022-02-13] MEDS ORDERED: Dextrose 50% Abboject 50 ML SYRINGE SLOW IVP PRN (00:23)
[2022-02-13] MEDS ORDERED: hydrALAZINE 20 MG/ML VIAL SLOW IVP PRN (00:25)
[2022-02-13] MEDS ORDERED: Labetalol HCl 100 MG/20 ML VIAL SLOW IVP PRN (00:25)
[2022-02-13] MEDS ORDERED: Sodium Chloride 0.9% 1,000 ML IV SCH (00:30)
[2022-02-13] MEDS: Morphine 4 MG/ML VIAL SLOW IVP PRN ×4 (02:59→15:20)
[2022-02-13] MEDS: [UNRECOGNIZED DRUG - REMARK] FS SCH (03:04)
[2022-02-13 03:52] VITALS: BMI 43.8
[2022-02-13] MEDS ORDERED: Albuterol Sulfate 2.5 mg/3 ml Neb NEB PRN (06:12)
[2022-02-13] MEDS: Lansoprazole 15 MG/5 ML (BATCHED)UDCUP PO SCH (08:09)
[2022-02-13 08:46] LABS: Hemoglobin 12.5 g/dL (12.0-16.0); Mean Corpuscular HGB CONC 33.3 g/dL (32.0-36.0); Mean Corpuscular Hemoglobin 31.9 pg (27.0-31.0); Mean Corpuscular Volume 95.8 fl (78.0-98.0); Mean Platelet Volume 7.6 fL (7.4-10.4); Platelet Count 262 10x3/uL (130-400); RBC Distribution Width 12.2 % (11.5-14.5); Red Blood Cell (RBC) Count 3.93 mill/uL (4.20-5.40); White Blood Cell (WBC) Count 7.4 10x3/uL (4.8-10.8)
[2022-02-13 08:58] LABS: ALT (SGPT) 14 U/L (8-55); AST (SGOT) 13 U/L (5-34); Albumin 3.1 g/dL (3.5-5.0); Alkaline Phosphatase 121 U/L (40-110); Anion Gap 10 mmol/L (10-20); BUN (Urea Nitrogen) 8 mg/dL (7.0-18.7); Bilirubin, Total 0.4 mg/dL (0.2-1.2); Calc. Creatinine Clearance 162 mL/min (70-130); Calcium 8.2 mg/dL (7.8-10.44); Carbon Dioxide 22 mmol/L (22-29); Chloride 105 mmol/L (98-107); Estimated GFR 95; Globulin 2.9 g/dL (2.4-3.5); Glucose 283 mg/dL (70-105); Potassium 4.1 mmol/L (3.5-5.1); Sodium 133 mmol/L (136-145)
[2022-02-13 09:40] LABS: Eosinophils 1 % (0-10); Lymphocytes 49 % (21-51); MDiff Complete? YES; Monocytes 3 % (0-10); Neutrophil 43 % (42-75); Platelet Morphology Comment Appears Adequate; RBC Morphology Normal; Reactive Lymphocytes 3 % (0-10)
[2022-02-13] MEDS ORDERED: Cyclobenzaprine 10 MG TAB PO PRN (13:13)
[2022-02-13] MEDS: Gabapentin 300 MG CAP PO SCH ×3 (13:26→21:19)
[2022-02-13] MEDS ORDERED: Sertraline 100 MG TAB PO SCH (13:30)
[2022-02-13] MEDS: Acetaminophen 325 MG TAB PO PRN (14:27)
[2022-02-13] MEDS ORDERED: Atorvastatin Calcium 40 MG TAB PO SCH (21:00)
[2022-02-13] MEDS ORDERED: Atorvastatin Calcium 20 MG TAB PO SCH (21:00)
[2022-02-13] MEDS: Atorvastatin Calcium 20 MG TAB PO SCH (21:21)
[2022-02-14] MEDS: Morphine 4 MG/ML VIAL SLOW IVP PRN ×3 (00:51→23:44)
[2022-02-14] MEDS: [UNRECOGNIZED DRUG - REMARK] FS SCH (04:30)
[2022-02-14 05:35] LABS: #Eosinphils 0.3 thou/uL (0.0-0.7); #Lymphocytes 2.7 thou/uL (1.20-3.40); #Monocytes 0.5 thou/uL (0.11-0.59); #Neutrophils 3.1 thou/uL (1.40-6.50); %Basophils 0.4 % (0.0-1.0); %Eosinophils 5.1 % (0.0-10.0); %Monocytes 7.6 % (0.0-10.0); %Neutrophils 46.9 % (42.0-75.0); Hemoglobin 13.5 g/dL (12.0-16.0); Mean Corpuscular HGB CONC 33.1 g/dL (32.0-36.0); Mean Corpuscular Hemoglobin 31.7 pg (27.0-31.0); Mean Corpuscular Volume 95.8 fl (78.0-98.0); Mean Platelet Volume 7.6 fL (7.4-10.4); Platelet Count 279 10x3/uL (130-400); RBC Distribution Width 11.9 % (11.5-14.5); Red Blood Cell (RBC) Count 4.26 mill/uL (4.20-5.40); White Blood Cell (WBC) Count 6.7 10x3/uL (4.8-10.8)
[2022-02-14 05:37] LABS: Hemoglobin A1c 11.2 % (4.0-6.0)
[2022-02-14 05:50] LABS: Anion Gap 9 mmol/L (10-20); Calc. Creatinine Clearance 158 mL/min (70-130); Calcium 8.3 mg/dL (7.8-10.44); Carbon Dioxide 26 mmol/L (22-29); Cardiac Risk 3.6 (Less than 4.5); Chloride 104 mmol/L (98-107); Cholesterol 151 mg/dl (< 200 Desired); Estimated GFR 91; Glucose 312 mg/dL (70-105); HDL Cholesterol 42 mg/dL (>60 Neg Risk); LDL Cholesterol, Calculated 82 mg/dL; Potassium 4.3 mmol/L (3.5-5.1); Sodium 135 mmol/L (136-145); Triglycerides 136 mg/dL (Less than 150)
[2022-02-14 07:17] LABS: BUN (Urea Nitrogen) 9 mg/dL (7.0-18.7)
[2022-02-14] MEDS: Lansoprazole 15 MG/5 ML (BATCHED)UDCUP PO SCH (08:57)
[2022-02-14] MEDS: Gabapentin 300 MG CAP PO SCH ×3 (08:57→20:22)
[2022-02-14] MEDS: Sertraline 100 MG TAB PO SCH (08:57)
[2022-02-14] MEDS ORDERED: Furosemide 20 MG/2 ML VIAL SLOW IVP SCH (13:00)
[2022-02-14] MEDS: Acetaminophen 325 MG TAB PO PRN (13:14)
[2022-02-14] MEDS: Atorvastatin Calcium 20 MG TAB PO SCH (20:22)
[2022-02-15] MEDS: Fioricet 325/50/40 mg Tablet PO SCH ×2 (00:47→09:11)
[2022-02-15] MEDS: Morphine 4 MG/ML VIAL SLOW IVP PRN (04:51)
[2022-02-15] MEDS: Lansoprazole 15 MG/5 ML (BATCHED)UDCUP PO SCH (09:10)
[2022-02-15] MEDS: Gabapentin 300 MG CAP PO SCH ×3 (09:10→21:29)
[2022-02-15] MEDS: Aspirin 81 mg Enteric Coated Tablet PO SCH (09:11)
[2022-02-15] MEDS: Sertraline 100 MG TAB PO SCH (09:11)
[2022-02-15 11:48] LABS: Anion Gap 16 mmol/L (10-20); BUN (Urea Nitrogen) 13 mg/dL (7.0-18.7); Calc. Creatinine Clearance 153 mL/min (70-130); Calcium 9.1 mg/dL (7.8-10.44); Carbon Dioxide 23 mmol/L (22-29); Chloride 100 mmol/L (98-107); Estimated GFR 88; Glucose 342 mg/dL (70-105); Potassium 4.5 mmol/L (3.5-5.1); Sodium 134 mmol/L (136-145)
[2022-02-15] MEDS ORDERED: diphenhydrAMINE 50 MG/ML VIAL IVP SCH (19:00)
[2022-02-15] MEDS ORDERED: Fioricet 325/50/40 mg Tablet PO SCH (21:00)
[2022-02-15] MEDS: Atorvastatin Calcium 20 MG TAB PO SCH (21:29)
[2022-02-16] MEDS ORDERED: FLU VACC QS2022-23(6MOS UP)/PF 60 MCG/0.5 ML SYRINGE IM ONE (04:45)
[2022-02-16 07:50] VITALS: TEMP 97.9
[2022-02-16] MEDS: Gabapentin 300 MG CAP PO SCH (08:24)
[2022-02-16] MEDS: Sertraline 100 MG TAB PO SCH (08:24)
[2022-02-16] MEDS: Lansoprazole 15 MG/5 ML (BATCHED)UDCUP PO SCH (08:24)
[2022-02-16] MEDS: Aspirin 81 mg Enteric Coated Tablet PO SCH (08:24)
[2022-02-16 12:03] VITALS: BP 112/78
== END 2022-02-16 15:07 | disposition home or self-care (01) | DRG 92 ==
LOC: ERS 20:48 → CCU 23:58 → NEURO 02-14 00:30
PROVIDERS: ADMIT Internal Medicine; ATTEND Internal Medicine
DX: R29.810 Facial weakness (principal); Z68.41 Body mass index [BMI] 40.0-44.9, adult; R47.81 Slurred speech; R07.89 Other chest pain; E66.9 Obesity, unspecified; Z20.822 Contact with and (suspected) exposure to COVID-19; F41.9 Anxiety disorder, unspecified; F32.A Depression, unspecified; Z96.41 Presence of insulin pump (external) (internal); E10.65 Type 1 diabetes mellitus with hyperglycemia; J45.20 Mild intermittent asthma, uncomplicated; M47.816 Spondylosis without myelopathy or radiculopathy, lumbar region; Z86.718 Personal history of other venous thrombosis and embolism; Z79.01 Long term (current) use of anticoagulants; Z88.5 Allergy status to narcotic agent; Z88.8 Allergy status to other drugs, medicaments and biological substances; Z79.899 Other long term (current) drug therapy
CPT/HCPCS: 36415; 36416; 70450; 70496; 70498; 70551; 71045; 71275; 74174; 80048; 80053; 80061; 82010; 82805; 83036; 83690; 83735; 84100; 84484; 84703; 85025; 85610; 85730; 93005; 93306; 96361; 96374; 96375; J1815; J1940; J2270; J2405; J3101; J7050; Q9967

== ENCOUNTER 2022-03-07 19:48 | Inpatient (IN) | payer OTHER ==
[2022-03-07 20:46] LABS: #Eosinphils 0.3 thou/uL (0.0-0.7); #Monocytes 0.6 thou/uL (0.11-0.59); #Neutrophils 4.7 thou/uL (1.40-6.50); %Basophils 0.4 % (0.0-1.0); %Eosinophils 3.1 % (0.0-10.0); %Lymphocytes 34.7 % (21.0-51.0); %Neutrophils 54.8 % (42.0-75.0); Hemoglobin 14.4 g/dL (12.0-16.0); Mean Corpuscular HGB CONC 33.9 g/dL (32.0-36.0); Mean Corpuscular Hemoglobin 31.9 pg (27.0-31.0); Mean Platelet Volume 7.2 fL (7.4-10.4); Platelet Count 295 10x3/uL (130-400); Red Blood Cell (RBC) Count 4.52 mill/uL (4.20-5.40); White Blood Cell (WBC) Count 8.6 10x3/uL (4.8-10.8)
[2022-03-07 20:57] LABS: INR-International Normal Ratio 0.9; PTT 25.8 sec (22.9-36.1); Prothrombin Time 12.2 sec (12.0-14.7)
[2022-03-07 21:02] LABS: ALT (SGPT) 21 U/L (8-55); AST (SGOT) 21 U/L (5-34); Alkaline Phosphatase 125 U/L (40-110); Anion Gap 10 mmol/L (10-20); BUN (Urea Nitrogen) 8 mg/dL (7.0-18.7); Bilirubin, Total Less than 0.2 mg/dL (0.2-1.2); CK (CPK) 154 U/L (29-168); Calc. Creatinine Clearance 0 mL/min (70-130); Calcium 9.6 mg/dL (7.8-10.44); Carbon Dioxide 27 mmol/L (22-29); Chloride 103 mmol/L (98-107); Estimated GFR 96; Globulin 3.6 g/dL (2.4-3.5); Glucose 149 mg/dL (70-105); Potassium 3.9 mmol/L (3.5-5.1); Protein, Total 7.6 g/dL (6.0-8.3); Sodium 136 mmol/L (136-145)
[2022-03-07] MEDS ORDERED: Tenecteplase 50 MG ONE (21:35)
[2022-03-07] MEDS ORDERED: Morphine 4 MG/ML VIAL ONE (21:41)
[2022-03-07] MEDS ORDERED: Ondansetron PF 4 MG/2 ML Vial ONE (21:41)
[2022-03-07] MEDS ORDERED: hydrALAZINE 20 MG/ML VIAL SLOW IVP PRN (22:56)
[2022-03-07] MEDS ORDERED: Labetalol HCl 100 MG/20 ML VIAL SLOW IVP PRN (22:56)
[2022-03-07] MEDS ORDERED: Mag-Al 1200 mg/1200 mg/30 ML UDCUP PO PRN (22:56)
[2022-03-07] MEDS ORDERED: niCARdipine 25 MG in Sodium Chloride 0.9% 250 ML 250 ML IVPB PRN (22:56)
[2022-03-07] MEDS: Communication Order-Pharmacy FS SCH (23:48)
[2022-03-07] MEDS: Dextrose 5%-Lactated Ringers 1,000 ML IV SCH (23:52)
[2022-03-07] MEDS: Acetaminophen 325 MG TAB PO PRN (23:54)
[2022-03-08] MEDS: Morphine 2 MG/ML VIAL SLOW IVP PRN ×3 (00:45→20:00)
[2022-03-08 01:42] LABS: Troponin I Less than 0.010 ng/mL (< 0.028)
[2022-03-08] MEDS: Gabapentin 300 MG CAP PO SCH ×3 (09:55→19:46)
[2022-03-08] MEDS: Sertraline 100 MG TAB PO SCH (09:56)
[2022-03-08] MEDS: Atorvastatin Calcium 20 MG TAB PO SCH (09:56)
[2022-03-08] MEDS: Dextrose 5%-Lactated Ringers 1,000 ML IV SCH (11:00)
[2022-03-08] MEDS: Communication Order-Pharmacy FS SCH (20:23)
[2022-03-09] MEDS: Morphine 2 MG/ML VIAL SLOW IVP PRN ×2 (08:30→15:41)
[2022-03-09] MEDS: Gabapentin 300 MG CAP PO SCH ×3 (09:02→20:21)
[2022-03-09] MEDS: Atorvastatin Calcium 20 MG TAB PO SCH (09:02)
[2022-03-09] MEDS: Sertraline 100 MG TAB PO SCH (09:02)
[2022-03-09] MEDS ORDERED: Aspirin 81 mg Enteric Coated Tablet PO SCH (10:00)
[2022-03-09] MEDS ORDERED: Atorvastatin Calcium 20 MG TAB PO SCH (10:00)
[2022-03-09] MEDS ORDERED: Clopidogrel Bisulfate 75 MG TAB PO SCH (13:15)
[2022-03-10] MEDS ORDERED: Midazolam HCl 2 mg/2 ml Vial ONE (07:13)
[2022-03-10] MEDS ORDERED: Ketamine 50 MG/ML (10ML VIAL) ONE (07:13)
[2022-03-10] MEDS ORDERED: Ondansetron PF 4 MG/2 ML Vial ONE (08:30)
[2022-03-10] MEDS ORDERED: Lidocaine 1% PF 5 ML VIAL ONE (08:30)
[2022-03-10] MEDS ORDERED: PROPOFOL 200 MG/20 ML VIAL ONE (08:30)
[2022-03-10] MEDS ORDERED: Dextrose 50% Abboject 50 ML SYRINGE IVP PRN (09:00)
[2022-03-10] MEDS ORDERED: Dextrose 5% in Water 1,000 ML IV PRN (09:00)
[2022-03-10] MEDS: Aspirin 81 mg Enteric Coated Tablet PO SCH (10:00)
[2022-03-10] MEDS: Sertraline 100 MG TAB PO SCH (10:00)
[2022-03-10] MEDS: Gabapentin 300 MG CAP PO SCH ×3 (10:00→20:47)
[2022-03-10] MEDS: Atorvastatin Calcium 40 MG TAB PO SCH (10:01)
[2022-03-10] MEDS: Clopidogrel Bisulfate 75 MG TAB PO SCH (10:02)
[2022-03-10] MEDS: Morphine 2 MG/ML VIAL SLOW IVP PRN (18:05)
[2022-03-10] MEDS ORDERED: Polyethylene Glycol 3350 17 GM Packet PO PRN (18:58)
[2022-03-10] MEDS ORDERED: Senokot S 8.6-50 MG TAB PO PRN (18:58)
[2022-03-11] MEDS: Clopidogrel Bisulfate 75 MG TAB PO SCH (08:34)
[2022-03-11] MEDS: Gabapentin 300 MG CAP PO SCH ×3 (08:35→21:09)
[2022-03-11] MEDS: Atorvastatin Calcium 40 MG TAB PO SCH (08:35)
[2022-03-11] MEDS: Aspirin 81 mg Enteric Coated Tablet PO SCH (08:36)
[2022-03-11] MEDS: Sertraline 100 MG TAB PO SCH (08:36)
[2022-03-11] MEDS ORDERED: FLU VACC QS2022-23(6MOS UP)/PF 60 MCG/0.5 ML SYRINGE IM ONE (09:00)
[2022-03-11] MEDS: Morphine 2 MG/ML VIAL SLOW IVP PRN ×2 (10:05→22:13)
[2022-03-12 05:27] VITALS: BMI 43.3
[2022-03-12 08:37] LABS: ALT (SGPT) 18 U/L (8-55); AST (SGOT) 18 U/L (5-34); Albumin 3.5 g/dL (3.5-5.0); Alkaline Phosphatase 99 U/L (40-110); Anion Gap 11 mmol/L (10-20); BUN (Urea Nitrogen) 10 mg/dL (7.0-18.7); Bilirubin, Total 0.5 mg/dL (0.2-1.2); Calc. Creatinine Clearance 173 mL/min (70-130); Calcium 8.9 mg/dL (7.8-10.44); Carbon Dioxide 21 mmol/L (22-29); Chloride 104 mmol/L (98-107); Estimated GFR 104; Globulin 3.8 g/dL (2.4-3.5); Glucose 153 mg/dL (70-105); Potassium 4.1 mmol/L (3.5-5.1); Protein, Total 7.3 g/dL (6.0-8.3); Sodium 132 mmol/L (136-145)
[2022-03-12] MEDS: Aspirin 81 mg Enteric Coated Tablet PO SCH (09:44)
[2022-03-12] MEDS: Clopidogrel Bisulfate 75 MG TAB PO SCH (09:44)
[2022-03-12] MEDS: Gabapentin 300 MG CAP PO SCH ×3 (09:45→21:30)
[2022-03-12] MEDS: Sertraline 100 MG TAB PO SCH (09:45)
[2022-03-12] MEDS: Hydrochlorothiazide 25 MG TAB PO SCH (09:46)
[2022-03-12] MEDS: Atorvastatin Calcium 40 MG TAB PO SCH (09:47)
[2022-03-12 10:29] LABS: Hemoglobin 15.1 g/dL (12.0-16.0); Mean Corpuscular HGB CONC 32.3 g/dL (32.0-36.0); Mean Corpuscular Volume 96.1 fl (78.0-98.0); Mean Platelet Volume 7.5 fL (7.4-10.4); Platelet Count 230 10x3/uL (130-400); RBC Distribution Width 12.2 % (11.5-14.5); Red Blood Cell (RBC) Count 4.86 mill/uL (4.20-5.40); White Blood Cell (WBC) Count 7.3 10x3/uL (4.8-10.8)
[2022-03-12] MEDS: Morphine 2 MG/ML VIAL SLOW IVP PRN ×2 (16:57→20:10)
[2022-03-12 22:08] LABS: Troponin I Less than 0.010 ng/mL (< 0.028)
[2022-03-13] MEDS: Gabapentin 300 MG CAP PO SCH ×3 (09:20→21:02)
[2022-03-13] MEDS: Atorvastatin Calcium 40 MG TAB PO SCH (09:20)
[2022-03-13] MEDS: Aspirin 81 mg Enteric Coated Tablet PO SCH (09:20)
[2022-03-13] MEDS: Clopidogrel Bisulfate 75 MG TAB PO SCH (09:22)
[2022-03-13] MEDS: Hydrochlorothiazide 25 MG TAB PO SCH (09:22)
[2022-03-13] MEDS: Sertraline 100 MG TAB PO SCH (09:23)
[2022-03-13] MEDS: Acetaminophen 325 MG TAB PO PRN (19:36)
[2022-03-14] MEDS: Gabapentin 300 MG CAP PO SCH (10:35)
[2022-03-14] MEDS: Sertraline 100 MG TAB PO SCH (10:36)
[2022-03-14] MEDS: Hydrochlorothiazide 25 MG TAB PO SCH (10:37)
[2022-03-14] MEDS: Aspirin 81 mg Enteric Coated Tablet PO SCH (10:37)
[2022-03-14] MEDS: Clopidogrel Bisulfate 75 MG TAB PO SCH (10:37)
[2022-03-14] MEDS: Atorvastatin Calcium 40 MG TAB PO SCH (10:38)
[2022-03-14] MEDS ORDERED: SUMAtriptan Succinate 6 MG/0.5 ML VIAL SC SCH (11:45)
[2022-03-14] MEDS: Gabapentin 400 MG CAP PO SCH ×2 (17:19→21:26)
[2022-03-15] MEDS: Gabapentin 400 MG CAP PO SCH ×3 (08:39→21:14)
[2022-03-15] MEDS: Sertraline 100 MG TAB PO SCH (08:39)
[2022-03-15] MEDS: Clopidogrel Bisulfate 75 MG TAB PO SCH (08:39)
[2022-03-15] MEDS: Hydrochlorothiazide 25 MG TAB PO SCH (08:39)
[2022-03-15] MEDS: Aspirin 81 mg Enteric Coated Tablet PO SCH (08:40)
[2022-03-15] MEDS: Atorvastatin Calcium 40 MG TAB PO SCH (08:40)
[2022-03-15 14:55] VITALS: BP 130/102
[2022-03-15 16:50] LABS: ANA Symphony (Qualitative) Negative (Negative); ANA Symphony (Quantitative) 0.4 Ratio (< 0.7 Negative); Mitochondrial Ab 1.5 U/mL (<4 Negative); Thyroid Peroxidase IgG Ab 6.2 IU/mL (<25 Normal); dsDNA IgG Antibody 1.8 IU/mL (<10 Negative)
[2022-03-15 17:14] LABS: ANA Symphony (Qualitative) Negative (Negative); ANA Symphony (Quantitative) 0.5 Ratio (< 0.7 Negative); dsDNA IgG Antibody 1.3 IU/mL (<10 Negative)
[2022-03-15 18:36] LABS: CCP IgG Antibody 5.2 EliAU/mL (<7 Negative); Rheumatoid Factor IgA Antibody 3.1 IU/mL (<14 Negative); Rheumatoid Factor IgM Antibody 1.7 IU/mL (<3.5 Negative)
[2022-03-15 18:46] LABS: RNP70 IgG Antibody Less than 0.3 EliAU/mL (<7 Negative); Scleroderma-70 IgG Antibody 0.9 EliAU/mL (<7 Negative); dsDNA IgG Antibody 1.4 IU/mL (<10 Negative)
[2022-03-15] MEDS: Acetaminophen 325 MG TAB PO PRN (19:13)
[2022-03-16] MEDS: Gabapentin 400 MG CAP PO SCH (08:11)
[2022-03-16] MEDS: Aspirin 81 mg Enteric Coated Tablet PO SCH (08:11)
[2022-03-16] MEDS: Sertraline 100 MG TAB PO SCH (08:11)
[2022-03-16] MEDS: Hydrochlorothiazide 25 MG TAB PO SCH (08:12)
[2022-03-16] MEDS: Atorvastatin Calcium 40 MG TAB PO SCH (08:12)
[2022-03-16] MEDS: Clopidogrel Bisulfate 75 MG TAB PO SCH (08:12)
[2022-03-16 08:46] VITALS: TEMP 98.1
== END 2022-03-16 14:15 | DRG 62 ==
LOC: ERS 19:48 → CCU 21:46
PROVIDERS: ADMIT Student in an Organized Health Care Education/Training Program; ATTEND Family Medicine
PROC: 3E06317 Introduction of Other Thrombolytic into Central Artery, Percutaneous Approach (ICD-10-PCS; principal; 2022-03-07)
PROC: B24BZZ4 Ultrasonography of Heart with Aorta, Transesophageal (ICD-10-PCS; 2022-03-10)
DX: I63.9 Cerebral infarction, unspecified (principal); G81.91 Hemiplegia, unspecified affecting right dominant side; Z68.41 Body mass index [BMI] 40.0-44.9, adult; E10.65 Type 1 diabetes mellitus with hyperglycemia; I10 Essential (primary) hypertension; E78.5 Hyperlipidemia, unspecified; F41.9 Anxiety disorder, unspecified; F32.A Depression, unspecified; J45.20 Mild intermittent asthma, uncomplicated; Z96.41 Presence of insulin pump (external) (internal); E66.9 Obesity, unspecified; R29.810 Facial weakness; E10.51 Type 1 diabetes mellitus with diabetic peripheral angiopathy without gangrene; Z86.718 Personal history of other venous thrombosis and embolism; Z88.5 Allergy status to narcotic agent; Z88.8 Allergy status to other drugs, medicaments and biological substances; Z79.899 Other long term (current) drug therapy
CPT/HCPCS: 36415; 36416; 70450; 70496; 70498; 70551; 71275; 74174; 80053; 80061; 82550; 83516; 83520; 84484; 85025; 85027; 85610; 85730; 86038; 86160; 86200; 86225; 86235; 86376; 93005; 93010; 93312; 96374; 96375; J1650; J2250; J2270; J2272; J2405; J2704; J3030; J3101; Q9967

== ENCOUNTER 2022-03-23 01:09 | Observation (INO) | payer OTHER ==
[2022-03-23 02:04] LABS: #Basophils 0.1 thou/uL (0.0-0.2); #Eosinphils 0.3 thou/uL (0.0-0.7); #Monocytes 0.5 thou/uL (0.11-0.59); #Neutrophils 4.4 thou/uL (1.40-6.50); %Basophils 0.7 % (0.0-1.0); %Eosinophils 4.1 % (0.0-10.0); %Lymphocytes 36.2 % (21.0-51.0); %Monocytes 6.5 % (0.0-10.0); %Neutrophils 52.5 % (42.0-75.0); Hemoglobin 13.7 g/dL (12.0-16.0); Mean Corpuscular HGB CONC 35.3 g/dL (32.0-36.0); Mean Corpuscular Hemoglobin 32.8 pg (27.0-31.0); Mean Platelet Volume 6.9 fL (7.4-10.4); Platelet Count 300 10x3/uL (130-400); RBC Distribution Width 11.9 % (11.5-14.5); Red Blood Cell (RBC) Count 4.16 mill/uL (4.20-5.40); White Blood Cell (WBC) Count 8.4 10x3/uL (4.8-10.8)
[2022-03-23 02:15] LABS: INR-International Normal Ratio 0.8; PTT 24.6 sec (22.9-36.1); Prothrombin Time 11.9 sec (12.0-14.7)
[2022-03-23 02:21] LABS: ALT (SGPT) 28 U/L (8-55); AST (SGOT) 22 U/L (5-34); Albumin 3.5 g/dL (3.5-5.0); Alkaline Phosphatase 144 U/L (40-110); Anion Gap 10 mmol/L (10-20); BUN (Urea Nitrogen) 13 mg/dL (7.0-18.7); Bilirubin, Total 0.2 mg/dL (0.2-1.2); Calc. Creatinine Clearance 0 mL/min (70-130); Calcium 9.2 mg/dL (7.8-10.44); Carbon Dioxide 27 mmol/L (22-29); Chloride 100 mmol/L (98-107); Estimated GFR 112; Globulin 3.5 g/dL (2.4-3.5); Glucose 106 mg/dL (70-105); Magnesium 1.8 mg/dL (1.6-2.6); Potassium 4.2 mmol/L (3.5-5.1); Sodium 133 mmol/L (136-145)
[2022-03-23] MEDS ORDERED: Acetaminophen 500 MG TAB ONE (02:38)
[2022-03-23] MEDS ORDERED: Acetaminophen 325 MG TAB PO PRN (04:01)
[2022-03-23] MEDS ORDERED: Dextrose 50% Abboject 50 ML SYRINGE SLOW IVP PRN (04:01)
[2022-03-23] MEDS ORDERED: Ondansetron PF 4 MG/2 ML Vial IVP PRN (04:01)
[2022-03-23] MEDS ORDERED: Dextrose 5% in Water 1,000 ML IV PRN (04:01)
[2022-03-23] MEDS ORDERED: Ondansetron ODT 4 MG TAB PO PRN (04:01)
[2022-03-23] MEDS ORDERED: HumaLOG 300 UNITS/3 ML VIAL SC PRN ×2 (04:01)
[2022-03-23] MEDS ORDERED: Sodium Chloride 0.9% 1,000 ML IV SCH (04:15)
[2022-03-23] MEDS ORDERED: Methocarbamol 500 MG TAB PO PRN (09:16)
[2022-03-23] MEDS ORDERED: Metoclopramide HCl 10 MG/2 ML VIAL IVP SCH (09:18)
[2022-03-23] MEDS ORDERED: diphenhydrAMINE 50 MG/ML VIAL IVP SCH ×2 (09:18→15:00)
[2022-03-23] MEDS ORDERED: Ketorolac Tromethamine 30 MG/ML VIAL IVP SCH (09:18)
[2022-03-23] MEDS ORDERED: Aspirin 81 mg Enteric Coated Tablet PO SCH (09:30)
[2022-03-23] MEDS ORDERED: Clopidogrel Bisulfate 75 MG TAB PO SCH (09:45)
[2022-03-23] MEDS ORDERED: Sertraline 100 MG TAB PO SCH (09:45)
[2022-03-23] MEDS ORDERED: Gabapentin 300 MG CAP PO SCH (09:45)
[2022-03-23] MEDS ORDERED: Metoclopramide HCl 10 MG/2 ML VIAL ONE (10:37)
[2022-03-23] MEDS ORDERED: Clopidogrel Bisulfate 75 MG TAB ONE (10:37)
[2022-03-23] MEDS ORDERED: diphenhydrAMINE 12.5 MG/5 ML UDCUP ONE (10:37)
[2022-03-23] MEDS ORDERED: Aspirin Chewable 81 MG TAB ONE (10:37)
[2022-03-23] MEDS ORDERED: Ketorolac Tromethamine 30 MG/ML VIAL ONE (10:37)
[2022-03-23] MEDS ORDERED: diphenhydrAMINE 50 MG/ML VIAL ONE ×3 (10:39→18:22)
[2022-03-23] MEDS ORDERED: Iopamidol-370 76% 500 ML 1 ML ONE (11:08)
[2022-03-23] MEDS ORDERED: Prochlorperazine 10 MG/2 ML VIAL IM SCH (15:00)
[2022-03-23] MEDS: Gabapentin 300 MG CAP PO SCH ×2 (16:43→22:05)
[2022-03-23] MEDS: diphenhydrAMINE 50 MG/ML VIAL IVP SCH (18:30)
[2022-03-23] MEDS: Prochlorperazine 10 MG/2 ML VIAL IM SCH (18:30)
[2022-03-23] MEDS ORDERED: Atorvastatin Calcium 40 MG TAB PO SCH (21:00)
[2022-03-24 00:30] VITALS: BMI 37.3
[2022-03-24] MEDS ORDERED: diphenhydrAMINE 50 MG/ML VIAL ONE (02:09)
[2022-03-24] MEDS: Prochlorperazine 10 MG/2 ML VIAL IM SCH ×3 (02:26→13:48)
[2022-03-24] MEDS: diphenhydrAMINE 50 MG/ML VIAL IVP SCH ×3 (02:27→09:00)
[2022-03-24 06:20] VITALS: TEMP 98.7
[2022-03-24 06:48] LABS: #Eosinphils 0.3 thou/uL (0.0-0.7); #Lymphocytes 2.2 thou/uL (1.20-3.40); #Monocytes 0.6 thou/uL (0.11-0.59); %Basophils 0.2 % (0.0-1.0); %Eosinophils 3.2 % (0.0-10.0); %Lymphocytes 27.8 % (21.0-51.0); %Neutrophils 61.8 % (42.0-75.0); Mean Corpuscular HGB CONC 33.6 g/dL (32.0-36.0); Mean Corpuscular Hemoglobin 31.6 pg (27.0-31.0); Mean Corpuscular Volume 94.1 fl (78.0-98.0); Mean Platelet Volume 6.9 fL (7.4-10.4); Platelet Count 303 10x3/uL (130-400); RBC Distribution Width 12.1 % (11.5-14.5); Red Blood Cell (RBC) Count 4.41 mill/uL (4.20-5.40)
[2022-03-24 07:10] LABS: Anion Gap 15 mmol/L (10-20); BUN (Urea Nitrogen) 13 mg/dL (7.0-18.7); Calc. Creatinine Clearance 191 mL/min (70-130); Calcium 9.2 mg/dL (7.8-10.44); Carbon Dioxide 23 mmol/L (22-29); Chloride 101 mmol/L (98-107); Estimated GFR 112; Glucose 189 mg/dL (70-105); Potassium 4.3 mmol/L (3.5-5.1); Sodium 135 mmol/L (136-145)
[2022-03-24] MEDS ORDERED: Sertraline 100 MG TAB PO SCH (09:00)
[2022-03-24] MEDS ORDERED: Aspirin 81 mg Enteric Coated Tablet PO SCH (09:00)
[2022-03-24] MEDS ORDERED: Clopidogrel Bisulfate 75 MG TAB PO SCH (09:00)
[2022-03-24] MEDS ORDERED: Aspirin 81 mg Enteric Coated Tablet ONE (13:41)
[2022-03-24] MEDS ORDERED: Clopidogrel Bisulfate 75 MG TAB ONE (13:41)
[2022-03-24] MEDS: Gabapentin 300 MG CAP PO SCH (13:47)
[2022-03-24 16:16] VITALS: BP 146/92
== END 2022-03-24 15:52 ==
LOC: ERS 01:09 → ERHOLD 03:02
PROVIDERS: ADMIT Student in an Organized Health Care Education/Training Program; ATTEND Nurse Practitioner Acute Care
DX: G43.709 Chronic migraine without aura, not intractable, without status migrainosus (principal); R20.2 Paresthesia of skin; I95.9 Hypotension, unspecified; G89.29 Other chronic pain; M54.9 Dorsalgia, unspecified; E10.42 Type 1 diabetes mellitus with diabetic polyneuropathy; I10 Essential (primary) hypertension; E78.5 Hyperlipidemia, unspecified; M47.816 Spondylosis without myelopathy or radiculopathy, lumbar region; E10.10 Type 1 diabetes mellitus with ketoacidosis without coma; J45.20 Mild intermittent asthma, uncomplicated; E66.9 Obesity, unspecified; Z68.37 Body mass index [BMI] 37.0-37.9, adult; Z86.718 Personal history of other venous thrombosis and embolism; Z86.73 Personal history of transient ischemic attack (TIA), and cerebral infarction without residual deficits; Z79.02 Long term (current) use of antithrombotics/antiplatelets; Z79.82 Long term (current) use of aspirin; Z79.899 Other long term (current) drug therapy; Z88.5 Allergy status to narcotic agent; Z88.8 Allergy status to other drugs, medicaments and biological substances; Z91.048 Other nonmedicinal substance allergy status
CPT/HCPCS: 36415; 70450; 70496; 70498; 70551; 71045; 80048; 82607; 83735; 85025; 85610; 85730; 93005; 96372; 96374; 96375; 96376; G0378; J0780; J1200; J1885; J2765; J7050; Q0163; Q9967

== ENCOUNTER 2022-06-21 07:48 | Emergency (ER) | payer OTHER ==
[2022-06-21] MEDS ORDERED: Prochlorperazine 10 MG/2 ML VIAL ONE (08:25)
[2022-06-21] MEDS ORDERED: Magnesium 2 GM/50 ML BAG (IN WATER) ONE (08:25)
[2022-06-21 08:55] LABS: #Eosinphils 0.1 thou/uL (0.0-0.7); #Lymphocytes 1.7 thou/uL (1.20-3.40); #Monocytes 0.6 thou/uL (0.11-0.59); #Neutrophils 3.8 thou/uL (1.40-6.50); %Basophils 0.2 % (0.0-1.0); %Eosinophils 1.4 % (0.0-10.0); %Lymphocytes 27.2 % (21.0-51.0); %Monocytes 9.1 % (0.0-10.0); %Neutrophils 62.1 % (42.0-75.0); Hemoglobin 12.7 g/dL (12.0-16.0); Mean Corpuscular HGB CONC 32.2 g/dL (32.0-36.0); Mean Corpuscular Hemoglobin 30.6 pg (27.0-31.0); Mean Corpuscular Volume 94.9 fl (78.0-98.0); Mean Platelet Volume 7.5 fL (7.4-10.4); Platelet Count 237 10x3/uL (130-400); RBC Distribution Width 12.3 % (11.5-14.5); Red Blood Cell (RBC) Count 4.14 mill/uL (4.20-5.40); White Blood Cell (WBC) Count 6.2 10x3/uL (4.8-10.8)
[2022-06-21 09:23] LABS: ALT (SGPT) 17 U/L (8-55); AST (SGOT) 18 U/L (5-34); Albumin 3.8 g/dL (3.5-5.0); Alkaline Phosphatase 94 U/L (40-110); Anion Gap 12 mmol/L (10-20); BUN (Urea Nitrogen) 10 mg/dL (7.0-18.7); Bilirubin, Total 0.4 mg/dL (0.2-1.2); Calc. Creatinine Clearance 0 mL/min (70-130); Calcium 8.9 mg/dL (7.8-10.44); Carbon Dioxide 24 mmol/L (22-29); Chloride 103 mmol/L (98-107); Estimated GFR 84; Globulin 3.4 g/dL (2.4-3.5); Glucose 180 mg/dL (70-105); Potassium 4.4 mmol/L (3.5-5.1); Protein, Total 7.2 g/dL (6.0-8.3); Sodium 135 mmol/L (136-145)
[2022-06-21] MEDS ORDERED: Ibuprofen 800 MG TAB ONE (11:18)
[2022-06-21] MEDS ORDERED: Metoclopramide HCl 10 MG TAB ONE (11:18)
== END 2022-06-21 11:25 | disposition home or self-care (01) ==
LOC: ERS 07:48
DX: G43.109 Migraine with aura, not intractable, without status migrainosus (principal); E10.9 Type 1 diabetes mellitus without complications; J45.909 Unspecified asthma, uncomplicated; M32.9 Systemic lupus erythematosus, unspecified; Z86.73 Personal history of transient ischemic attack (TIA), and cerebral infarction without residual deficits; Z79.82 Long term (current) use of aspirin; Z79.899 Other long term (current) drug therapy
CPT/HCPCS: 36415; 36416; 70450; 80053; 85025; 94760; J0780; J3475

== ENCOUNTER 2022-08-26 15:54 | Emergency (ER) | payer OTHER ==
[2022-08-26 17:36] LABS: #Eosinphils 0.1 thou/uL (0.0-0.7); #Monocytes 0.4 thou/uL (0.11-0.59); #Neutrophils 2.4 thou/uL (1.40-6.50); %Basophils 0.6 % (0.0-1.0); %Eosinophils 2.9 % (0.0-10.0); %Lymphocytes 37.5 % (21.0-51.0); %Neutrophils 49.8 % (42.0-75.0); Hemoglobin 13.3 g/dL (12.0-16.0); Mean Corpuscular HGB CONC 33.6 g/dL (32.0-36.0); Mean Corpuscular Hemoglobin 30.4 pg (27.0-31.0); Mean Corpuscular Volume 90.4 fl (78.0-98.0); Mean Platelet Volume 9.2 fL (7.4-10.4); Platelet Count 270 10x3/uL (130-400); RBC Distribution Width 13.1 % (11.5-14.5); Red Blood Cell (RBC) Count 4.38 mill/uL (4.20-5.40); White Blood Cell (WBC) Count 4.9 10x3/uL (4.8-10.8)
[2022-08-26 17:52] LABS: ALT (SGPT) 53 U/L (8-55); AST (SGOT) 31 U/L (5-34); Albumin 3.9 g/dL (3.5-5.0); Alkaline Phosphatase 145 U/L (40-110); Anion Gap 14 mmol/L (10-20); BUN (Urea Nitrogen) 7 mg/dL (7.0-18.7); Bilirubin, Total 0.4 mg/dL (0.2-1.2); Calc. Creatinine Clearance 0 mL/min (70-130); Calcium 9.3 mg/dL (7.8-10.44); Carbon Dioxide 19 mmol/L (22-29); Chloride 103 mmol/L (98-107); Estimated GFR 84; Globulin 3.4 g/dL (2.4-3.5); Glucose 363 mg/dL (70-105); Lipase 8 U/L (8-78); Potassium 3.7 mmol/L (3.5-5.1); Protein, Total 7.3 g/dL (6.0-8.3); Sodium 132 mmol/L (136-145)
[2022-08-26] MEDS ORDERED: Ketorolac Tromethamine 30 MG/ML VIAL ONE (18:02)
== END 2022-08-26 18:57 | disposition home or self-care (01) ==
LOC: ERS 15:54
DX: R07.89 Other chest pain (principal); E10.9 Type 1 diabetes mellitus without complications; Z86.73 Personal history of transient ischemic attack (TIA), and cerebral infarction without residual deficits; Z79.899 Other long term (current) drug therapy; Z79.82 Long term (current) use of aspirin; Z79.4 Long term (current) use of insulin; Z79.84 Long term (current) use of oral hypoglycemic drugs
CPT/HCPCS: 71045; 80053; 83690; 84484; 85025; 93005; 94760; 96372; J1885

== ENCOUNTER 2023-09-23 13:51 | Outpatient (CLI) | payer OTHER | END 2023-09-23 13:52 | disposition home or self-care (01) | LOC: SCSMRI 13:51 | PROVIDERS: ATTEND Nurse Practitioner | DX: G43.419 Hemiplegic migraine, intractable, without status migrainosus (principal); H53.2 Diplopia; R51.0 Headache with orthostatic component, not elsewhere classified; G93.2 Benign intracranial hypertension | CPT/HCPCS: 70551; 70553 ==

== ENCOUNTER 2024-03-14 11:06 | Outpatient (CLI) | payer OTHER | END 2024-03-14 11:07 | disposition home or self-care (01) | PROVIDERS: ATTEND Physician Assistant | DX: E88.40 Mitochondrial metabolism disorder, unspecified (principal) ==